=== PATIENT | female | born 1970 | race Caucasian/White ===

== ENCOUNTER 2018-03-09 12:53 | Emergency (ER) | payer OTHER, SELFPAY ==
[2018-03-09 13:00] VITALS: BP 120/77; PULSE 66; RESP 14; TEMP 36.5; O2SAT 100; BMI 22.9
--- NOTE | 2018-03-09 13:06 | ED.SKABFB ---
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 She states the dog's immunizations are up-to-date. Her repeat titers are up-to-date according to her. She was a bit to the right cheek area with redness and swelling and a puncture wound. She denies any injury to her eye. She is able to open and close her jaw without any complications. No other injuries or complaints.. She reports that her tetanus is up-to-date. Related Data Previous Rx's Medication Instructions Recorded clindamycin HCl 300 mg PO QID #40 cap MDD 1,200 mg 03/16/18 Allergies Allergy/AdvReac Type Severity Reaction Status Date / Time No Known Drug Allergies Allergy Verified 03/09/18 13:02 Review of Systems <ELVA Agosto - Last Filed: 03/09/18 22:16> Constitutional Denies chills, Denies fever(s), Denies lethargy and Denies weakness Eyes Denies change in vision, Denies eye discharge, Denies irritation and Denies loss of vision ENT Ears, Nose, Mouth, and Throat: Denies change in voice, Denies neck pain and Denies sore throat Cardiovascular Denies chest pain, Denies irregular heart rhythm, Denies lightheadedness, Denies palpitations, Denies dyspnea, Denies dyspnea on exertion and Denies orthopnea Respiratory Denies cough, Denies dyspnea, Denies dyspnea on exertion and Denies wheezing Gastrointestinal Gastrointestinal: Denies abdominal pain, Denies change in bowel habits, Denies diarrhea, Denies nausea and Denies vomiting Musculoskeletal Denies neck pain Integumentary/Breasts Comments: Dog bite to right cheek area Neurologic Denies loss of vision and Denies weakness Endocrine Denies palpitations Hematologic/Lymphatic Denies easy bruising Allergic/Immunologic Denies wheezing Exam <ELVA Agosto - Last Filed: 03/09/18 22:16> Initial Vital Signs Initial Vital Signs: Vital Signs Temperature 97.7 F 03/09/18 13:00 Pulse Rate 66 03/09/18 13:00 Respiratory Rate 14 03/09/18 13:00 Blood Pressure 120/77 03/09/18 13:00 Pulse Oximetry 100 03/09/18 13:00 Const General: cooperative and well developed Nutritional Appearance: well nourished Orientation: alert, awake, oriented x3 and not confused [facility] [place] Head: normocephalic and other (Erythema and swelling to the right cheek. 1 cm laceration/puncture wound to the right zygomatic area. Other small superficial abrasions to the right cheek area. No deformities.) Nose: external nose normal and nares normal Mouth: oral mucosae normal, oropharynx normal and moist mucous membranes Eyes Eyelids: eyelids normal Conjunctivae: conjunctivae normal Sclera: sclerae normal Pupils: PERRL EOM: EOM intact bilaterally Resp Effort & Inspection: normal respiratory effort, able to speak in complete sentences, no respiratory distress and no use of accessory muscles Auscultation: clear to auscultation bilaterally, no rales, no rhonchi and no wheezes Cardio Rate: regular rate Rhythm: regular rhythm Heart Sounds: no click, no gallops, no murmurs and no rubs Skin General: no rashes or lesions noted, No jaundice and No petechiae Neuro General: alert, oriented x3, gait normal and no focal motor deficits Speech: speech normal <DO Ellis Stoll Last Filed: 03/26/18 07:57> Initial Vital Signs Initial Vital Signs: Vital Signs Temperature 97.7 F 03/09/18 13:00 Pulse Rate 66 03/09/18 13:00 Respiratory Rate 14 03/09/18 13:00 Blood Pressure 120/77 03/09/18 13:00 Pulse Oximetry 100 03/09/18 13:00 Course <ELVA Agosto - Last Filed: 03/09/18 22:16> Orders Ordered: Discontinued Medications Ibuprofen (Advil) 400 mg PO NOW ONE Stop: 03/09/18 13:17 Last Admin: 03/09/18 13:43 Dose: 400 mg Vital Signs - 8 hr 03/09/18 13:00 Temperature 97.7 F Pulse Rate 66 Respiratory Rate 14 Blood Pressure 120/77 Pulse Oximetry 100 <DO Ellis Stoll Filed: 03/26/18 07:57> Orders Ordered: Discontinued Medications Ibuprofen (Advil) 400 mg PO NOW ONE Stop: 03/09/18 13:17 Last Admin: 03/09/18 13:43 Dose: 400 mg Vital Signs - 8 hr 03/09/18 13:00 Temperature 97.7 F Pulse Rate 66 Respiratory Rate 14 Blood Pressure 120/77 Pulse Oximetry 100 MDM - Skin/Abscess/Foreign Bdy <ELVA Agosto - Last Filed: 03/09/18 22:16> Imaging Data Facial bones : Radiologist's impression: Signed Patient: Macy Bravo MR#: [id number] : 1970 Acct:[id number] Age/Sex: 47 / F Date of Service: 03/09/18 Loc: ED Accession Number: [id number] Procedure: XR facial bones <3V Ordering Provider: Jonathan Loera PROCEDURE: XR FACIAL BONES <3V INDICATIONS: Dog bite to right cheek TECHNIQUE: 2 views of the facial bones were acquired. COMPARISON: None. FINDINGS: Sinuses: Visualized sinuses demonstrate no air-fluid levels or mucosal thickening. Bones: No fractures. No suspicious bony lesions. Orbital rims and zygomatic arches appear intact. Soft tissues: No suspicious soft tissue densities. IMPRESSION: 1. No facial bone fractures as seen. 2. No apparent soft tissue foreign bodies. [facility] Narrative Medical decision making narrative: 1 cm laceration/puncture wound to the right zygomatic area was irrigated with 250 mL of normal saline. Wound was closed with Steri-Strips to help with scarring did not want closed with sutures or Dermabond due to bite wound. Facial series x-rays was obtained was negative for any acute fractures or foreign bodies. [id number] Tylenol Motrin as needed for any discomfort. Tetanus is up-to-date. She is prescribed Augmentin for prophylaxis purposes. Follow up with primary care provider in the next few days. Return emergency room for any worsening symptoms. Discharge Plan Departure Patient Disposition: Home, Self-Care Clinical Impression: Dog bite, Facial laceration Discharge Date/Time: 03/09/18 14:29 Interventions: ED Discharge Assessment Last Done: 03/09/18 14:28 Instructions: DI for Dog Bite Activity Restrictions/Additional Instructions: Facial bone series x-ray was obtained was negative for any foreign bodies or fractures. Laceration from a dog bite to the right zygomatic area was closed with Steri-Strips. Try to keep Steri-Strips clean and dry for the next couple of days to promote healing and less scarring. You are prescribed an antibiotic called Augmentin for infection prophylaxis use as directed. Fluconazole as prescribed to prevent/treat for yeast infection also use as directed. Use [id number] Tylenol and/or Motrin as needed for any discomfort. Follow up with her primary care provider next week. For any worsening symptoms return to the emergency room. Prescriptions: No Action clindamycin HCl 300 mg capsule 300 mg PO QID MDD 1,200 mg Qty: 40 RF: 0 Referrals: [facility] [Provider Group] <Win Ho DO - Last Filed: 03/26/18 07:57> Cosign ED Attending Bernard Attestation: I was immediately available in the department for consultation. Documentation has been reviewed. I agree with assessment and plan.
--- NOTE | 2018-03-09 13:10 | DI.RAD.S_ITS ---
PROCEDURE: XR FACIAL BONES <3V INDICATIONS: Dog bite to right cheek TECHNIQUE: 2 views of the facial bones were acquired. COMPARISON: None. FINDINGS: Sinuses: Visualized sinuses demonstrate no air-fluid levels or mucosal thickening. Bones: No fractures. No suspicious bony lesions. Orbital rims and zygomatic arches appear intact. Soft tissues: No suspicious soft tissue densities. IMPRESSION: 1. No facial bone fractures as seen. 2. No apparent soft tissue foreign bodies. Dictated by: Keshav Javier M.D. on 03/09/2018 at 13:47 Approved by: Keshav Javier M.D. on 03/09/2018 at 13:48
[2018-03-09] MEDS: IBUPROFEN 400 MG TABLET PO (13:43)
--- NOTE | 2018-03-09 14:04 | ED_ITS ---
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 She states the dog's immunizations are up-to-date. Her repeat titers are up-to-date according to her. She was a bit to the right cheek area with redness and swelling and a puncture wound. She denies any injury to her eye. She is able to open and close her jaw without any complications. No other injuries or complaints.. She reports that her tetanus is up-to-date. Related Data Previous Rx's Medication Instructions Recorded clindamycin HCl 300 mg PO QID #40 cap MDD 1,200 mg 03/16/18 Allergies Allergy/AdvReac Type Severity Reaction Status Date / Time No Known Drug Allergies Allergy Verified 03/09/18 13:02 Review of Systems <ELVA Agosto - Last Filed: 03/09/18 22:16> Constitutional Denies chills, Denies fever(s), Denies lethargy and Denies weakness Eyes Denies change in vision, Denies eye discharge, Denies irritation and Denies loss of vision ENT Ears, Nose, Mouth, and Throat: Denies change in voice, Denies neck pain and Denies sore throat Cardiovascular Denies chest pain, Denies irregular heart rhythm, Denies lightheadedness, Denies palpitations, Denies dyspnea, Denies dyspnea on exertion and Denies orthopnea Respiratory Denies cough, Denies dyspnea, Denies dyspnea on exertion and Denies wheezing Gastrointestinal Gastrointestinal: Denies abdominal pain, Denies change in bowel habits, Denies diarrhea, Denies nausea and Denies vomiting Musculoskeletal Denies neck pain Integumentary/Breasts Comments: Dog bite to right cheek area Neurologic Denies loss of vision and Denies weakness Endocrine Denies palpitations Hematologic/Lymphatic Denies easy bruising Allergic/Immunologic Denies wheezing Exam <ELVA Agosto - Last Filed: 03/09/18 22:16> Initial Vital Signs Initial Vital Signs: Vital Signs Temperature 97.7 F 03/09/18 13:00 Pulse Rate 66 03/09/18 13:00 Respiratory Rate 14 03/09/18 13:00 Blood Pressure 120/77 03/09/18 13:00 Pulse Oximetry 100 03/09/18 13:00 Const General: cooperative and well developed Nutritional Appearance: well nourished Orientation: alert, awake, oriented x3 and not confused [facility] Head: normocephalic and other (Erythema and swelling to the right cheek. 1 cm laceration/puncture wound to the right zygomatic area. Other small superficial abrasions to the right cheek area. No deformities.) Nose: external nose normal and nares normal Mouth: oral mucosae normal, oropharynx normal and moist mucous membranes Eyes Eyelids: eyelids normal Conjunctivae: conjunctivae normal Sclera: sclerae normal Pupils: PERRL EOM: EOM intact bilaterally Resp Effort & Inspection: normal respiratory effort, able to speak in complete sentences, no respiratory distress and no use of accessory muscles Auscultation: clear to auscultation bilaterally, no rales, no rhonchi and no wheezes Cardio Rate: regular rate Rhythm: regular rhythm Heart Sounds: no click, no gallops, no murmurs and no rubs Skin General: no rashes or lesions noted, No jaundice and No petechiae Neuro General: alert, oriented x3, gait normal and no focal motor deficits Speech: speech normal <DO Ellis Stoll Last Filed: 03/26/18 07:57> Initial Vital Signs Initial Vital Signs: Vital Signs Temperature 97.7 F 03/09/18 13:00 Pulse Rate 66 03/09/18 13:00 Respiratory Rate 14 03/09/18 13:00 Blood Pressure 120/77 03/09/18 13:00 Pulse Oximetry 100 03/09/18 13:00 Course <ELVA Agosto - Last Filed: 03/09/18 22:16> Orders Ordered: Discontinued Medications Ibuprofen (Advil) 400 mg PO NOW ONE Stop: 03/09/18 13:17 Last Admin: 03/09/18 13:43 Dose: 400 mg Vital Signs - 8 hr 03/09/18 13:00 Temperature 97.7 F Pulse Rate 66 Respiratory Rate 14 Blood Pressure 120/77 Pulse Oximetry 100 <DO Ellis Stoll Filed: 03/26/18 07:57> Orders Ordered: Discontinued Medications Ibuprofen (Advil) 400 mg PO NOW ONE Stop: 03/09/18 13:17 Last Admin: 03/09/18 13:43 Dose: 400 mg Vital Signs - 8 hr 03/09/18 13:00 Temperature 97.7 F Pulse Rate 66 Respiratory Rate 14 Blood Pressure 120/77 Pulse Oximetry 100 MDM - Skin/Abscess/Foreign Bdy <ELVA Agosto - Last Filed: 03/09/18 22:16> Imaging Data Facial bones : Radiologist's impression: Signed Patient: Macy Bravo MR#: [id number] : 1970 Acct:[id number] Age/Sex: 47 / F Date of Service: 03/09/18 Loc: ED Accession Number: [id number] Procedure: XR facial bones <3V Ordering Provider: Jonathan Loera PROCEDURE: XR FACIAL BONES <3V INDICATIONS: Dog bite to right cheek TECHNIQUE: 2 views of the facial bones were acquired. COMPARISON: None. FINDINGS: Sinuses: Visualized sinuses demonstrate no air-fluid levels or mucosal thickening. Bones: No fractures. No suspicious bony lesions. Orbital rims and zygomatic arches appear intact. Soft tissues: No suspicious soft tissue densities. IMPRESSION: 1. No facial bone fractures as seen. 2. No apparent soft tissue foreign bodies. [facility] Narrative Medical decision making narrative: 1 cm laceration/puncture wound to the right zygomatic area was irrigated with 250 mL of normal saline. Wound was closed with Steri-Strips to help with scarring did not want closed with sutures or Dermabond due to bite wound. Facial series x-rays was obtained was negative for any acute fractures or foreign bodies. [id number] Tylenol Motrin as needed for any discomfort. Tetanus is up-to-date. She is prescribed Augmentin for prophylaxis purposes. Follow up with primary care provider in the next few days. Return emergency room for any worsening symptoms. Discharge Plan Departure Patient Disposition: Home, Self-Care Clinical Impression: Dog bite, Facial laceration Discharge Date/Time: 03/09/18 14:29 Interventions: ED Discharge Assessment Last Done: 03/09/18 14:28 Instructions: DI for Dog Bite Activity Restrictions/Additional Instructions: Facial bone series x-ray was obtained was negative for any foreign bodies or fractures. Laceration from a dog bite to the right zygomatic area was closed with Steri-Strips. Try to keep Steri-Strips clean and dry for the next couple of days to promote healing and less scarring. You are prescribed an antibiotic called Augmentin for infection prophylaxis use as directed. Fluconazole as prescribed to prevent/treat for yeast infection also use as directed. Use over- the-counter Tylenol and/or Motrin as needed for any discomfort. Follow up with her primary care provider next week. For any worsening symptoms return to the emergency room. Prescriptions: No Action clindamycin HCl 300 mg capsule 300 mg PO QID MDD 1,200 mg Qty: 40 RF: 0 Referrals: [facility] [Provider Group] <Win Ho DO - Last Filed: 03/26/18 07:57> Cosign ED Attending Bernard Attestation: I was immediately available in the department for consultation. Documentation has been reviewed. I agree with assessment and plan.
[2018-03-09 14:16] VITALS: BP 110/73; PULSE 57; RESP 18; O2SAT 100
== END 2018-03-09 14:29 | disposition home or self-care (01) ==
PROVIDERS: Emergency Provider Nurse Practitioner Family
DX: S01.81XA Laceration without foreign body of other part of head, initial encounter (principal); W54.0XXA Bitten by dog, initial encounter; Y99.0 Civilian activity done for income or pay
CPT/HCPCS: 70140; 99282; 99283

== ENCOUNTER 2018-03-11 11:26 | Inpatient (IN) | payer OTHER, SELFPAY ==
[2018-03-11] VITALS (7 sets, daily range): BP systolic 104–113; BP diastolic 60–77; PULSE 63–73; RESP 16–20; TEMP 36.1–36.7; O2SAT 98–100; BMI 24.1
--- NOTE | 2018-03-11 13:07 | ED.SKABFB ---
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 She was seen by me 2 days ago and was treated with Augmentin. She reports that she has been taking the Augmentin over the past couple of days. She reports increased swelling and redness and discomfort to the right cheek area especially today. Starting when she woke up this morning. She denies any fevers or chills. She states that she has had some clear drainage from the wound area. She denies any other concerns or complaints Related Data Previous Rx's Medication Instructions Recorded amoxicillin-pot clavulanate 1 tab PO BID #10 tab 03/09/18 [Augmentin] fluconazole 150 mg PO .other #2 tab 03/09/18 Allergies Allergy/AdvReac Type Severity Reaction Status Date / Time No Known Drug Allergies Allergy Verified 03/09/18 13:02 Review of Systems <ELVA Agosto - Last Filed: 03/11/18 22:57> Constitutional Denies chills, Denies fever(s), Denies lethargy and Denies weakness Eyes Denies change in vision, Denies eye discharge, Denies irritation and Denies loss of vision ENT Comments: Dog bite to right cheek worsening redness Cardiovascular Denies chest pain, Denies irregular heart rhythm, Denies lightheadedness, Denies palpitations, Denies dyspnea, Denies dyspnea on exertion and Denies orthopnea Respiratory Denies cough, Denies dyspnea, Denies dyspnea on exertion and Denies wheezing Gastrointestinal Gastrointestinal: Denies abdominal pain, Denies change in bowel habits, Denies diarrhea, Denies nausea and Denies vomiting Genitourinary Denies hematuria, Denies flank pain, Denies urinary incontinence and Denies urinary urgency Musculoskeletal Denies back pain, Denies muscle weakness, Denies numbness and Denies tingling Integumentary/Breasts Denies pruritus, Denies erythema, Denies rash and Denies wounds Neurologic Denies confusion, Denies loss of vision, Denies numbness, Denies tingling and Denies weakness Psychiatric Denies anxiety, Denies confusion, Denies depression, Denies homicidal ideation and Denies suicidal ideation Endocrine Denies palpitations Hematologic/Lymphatic Denies easy bruising Allergic/Immunologic Denies wheezing Exam <ELVA Agosto - Last Filed: 03/11/18 22:57> Initial Vital Signs Initial Vital Signs: Vital Signs Temperature 97.6 F 03/11/18 11:30 Pulse Rate 73 03/11/18 11:30 Respiratory Rate 16 03/11/18 11:30 Blood Pressure 112/77 03/11/18 11:30 Pulse Oximetry 98 03/11/18 11:30 Const General: cooperative and well developed Nutritional Appearance: well nourished Orientation: alert, awake, oriented x3 and not confused HENMT Face and sinus: other (Laceration to right zygomatic area appear well approximated. Generalized erythema and swelling into the right cheek and into the infra orbital area. No drainage seen on exam. Increased heat to the area on palpation.) Mouth: oral mucosae normal and moist mucous membranes Eyes Conjunctivae: conjunctivae normal Sclera: sclerae normal Pupils: PERRL EOM: EOM intact bilaterally Resp Effort & Inspection: normal respiratory effort, able to speak in complete sentences, no respiratory distress and no use of accessory muscles Auscultation: clear to auscultation bilaterally, no rales, no rhonchi and no wheezes Cardio Rate: regular rate Rhythm: regular rhythm Heart Sounds: no click, no gallops, no murmurs and no rubs Pulses: normal peripheral pulses Skin General: no rashes or lesions noted, No jaundice and No petechiae Neuro General: alert, oriented x3, gait normal and no focal motor deficits Speech: speech normal <Sebas Lainez DO - Last Filed: 03/12/18 07:20> Initial Vital Signs Initial Vital Signs: Vital Signs Temperature 97.6 F 03/11/18 11:30 Pulse Rate 73 03/11/18 11:30 Respiratory Rate 16 03/11/18 11:30 Blood Pressure 112/77 03/11/18 11:30 Pulse Oximetry 98 03/11/18 11:30 Course <ELVA Agosto - Last Filed: 03/11/18 22:57> Orders Ordered: Acetaminophen (Tylenol) 650 mg PO Q6HR PRN PRN Reason: As Needed for Fever/Mild Pain Hydrocodone Bitart/Acetaminophen (Darden 5/325) 1 tab PO Q4HR PRN PRN Reason: Pain, Moderate (4-6) Al Hydrox/Mg Hydrox/Simethicone (Maalox Plus) 30 ml PO Q6HR PRN PRN Reason: Dyspepsia Sodium Chloride (Normal Saline 0.9%) 1,000 mls @ 125 mls/hr IV CONT [facility] Last Admin: 03/12/18 03:44 Dose: 125 mls/hr Infusion: 03/12/18 02:36 Dose: 125 mls/hr Admin: 03/11/18 18:36 Dose: 125 mls/hr Ceftriaxone Sodium/Dextrose (Rocephin) 2 gm in 50 mls @ 100 mls/hr IV Q24H [facility] Clindamycin Phosphate (Cleocin) 600 mg in 50 mls @ 50 mls/hr IV Q6H [facility] Last Admin: 03/12/18 03:45 Dose: 50 mls/hr Infusion: 03/11/18 23:00 Dose: 0 mls/hr Admin: 03/11/18 21:29 Dose: 50 mls/hr Magnesium Hydroxide (Milk Of Magnesia) 30 ml PO DAILY PRN PRN Reason: Constipation Ondansetron HCl (Zofran) 4 mg IV Q8HR PRN PRN Reason: Nausea And Vomiting Oxycodone HCl (Percolone) 5 mg PO Q6HR PRN PRN Reason: Pain, Moderate (4-6) Discontinued Medications Ceftriaxone Sodium/Dextrose (Rocephin) 2 gm in 50 mls @ 100 mls/hr IV NOW ONE Stop: 03/11/18 15:42 Last Infusion: 03/11/18 16:02 Dose: 0 mls/hr Admin: 03/11/18 15:33 Dose: 100 mls/hr Clindamycin Phosphate (Cleocin) 600 mg in 50 mls @ 50 mls/hr IV NOW ONE Stop: 03/11/18 16:41 Last Infusion: 03/11/18 16:40 Dose: 0 mls/hr Admin: 03/11/18 16:11 Dose: 50 mls/hr Ondansetron HCl (Zofran) 4 mg IV Q4HR PRN PRN Reason: Nausea And Vomiting Vital Signs - 8 hr 07/27/18 23:57 03/12/18 00:05 03/12/18 05:56 Temperature 97.6 F 98.6 F Pulse Rate 63 54 L Respiratory Rate 16 16 Blood Pressure 106/60 110/69 Pulse Oximetry 98 98 99 <Sebas Fishergale, DO - Last Filed: 03/12/18 07:20> Orders Ordered: Acetaminophen (Tylenol) 650 mg PO Q6HR PRN PRN Reason: As Needed for Fever/Mild Pain Hydrocodone Bitart/Acetaminophen (Darden 5/325) 1 tab PO Q4HR PRN PRN Reason: Pain, Moderate (4-6) Al Hydrox/Mg Hydrox/Simethicone (Maalox Plus) 30 ml PO Q6HR PRN PRN Reason: Dyspepsia Sodium Chloride (Normal Saline 0.9%) 1,000 mls @ 125 mls/hr IV CONT [facility] Last Admin: 03/12/18 03:44 Dose: 125 mls/hr Infusion: 03/12/18 02:36 Dose: 125 mls/hr Admin: 03/11/18 18:36 Dose: 125 mls/hr Ceftriaxone Sodium/Dextrose (Rocephin) 2 gm in 50 mls @ 100 mls/hr IV Q24H [facility] Clindamycin Phosphate (Cleocin) 600 mg in 50 mls @ 50 mls/hr IV Q6H [facility] Last Admin: 03/12/18 03:45 Dose: 50 mls/hr Infusion: 03/11/18 23:00 Dose: 0 mls/hr Admin: 03/11/18 21:29 Dose: 50 mls/hr Magnesium Hydroxide (Milk Of Magnesia) 30 ml PO DAILY PRN PRN Reason: Constipation Ondansetron HCl (Zofran) 4 mg IV Q8HR PRN PRN Reason: Nausea And Vomiting Oxycodone HCl (Percolone) 5 mg PO Q6HR PRN PRN Reason: Pain, Moderate (4-6) Discontinued Medications Ceftriaxone Sodium/Dextrose (Rocephin) 2 gm in 50 mls @ 100 mls/hr IV NOW ONE Stop: 03/11/18 15:42 Last Infusion: 03/11/18 16:02 Dose: 0 mls/hr Admin: 03/11/18 15:33 Dose: 100 mls/hr Clindamycin Phosphate (Cleocin) 600 mg in 50 mls @ 50 mls/hr IV NOW ONE Stop: 03/11/18 16:41 Last Infusion: 03/11/18 16:40 Dose: 0 mls/hr Admin: 03/11/18 16:11 Dose: 50 mls/hr Ondansetron HCl (Zofran) 4 mg IV Q4HR PRN PRN Reason: Nausea And Vomiting Vital Signs - 8 hr 03/11/18 23:57 03/12/18 00:05 03/12/18 05:56 Temperature 97.6 F 98.6 F Pulse Rate 63 54 L Respiratory Rate 16 16 Blood Pressure 106/60 110/69 Pulse Oximetry 98 98 99 MDM - Skin/Abscess/Foreign Bdy <ELVA Agosto - Last Filed: 03/11/18 22:57> Lab Data Result diagrams: 03/11/18 14:10 03/11/18 14:10 Lab Results 03/11/18 03/11/18 03/11/18 Range/Units 14:10 14:10 14:10 WBC 5.9 (4.5-11.0) X10^3/uL RBC 4.59 (4.0-5.2) X10^6/uL Hgb 14.1 (12.0-16.0) g/dL Hct 41.3 (36-46) % MCV 90.0 (80-100) fL MCH 30.7 (26-34) PG MCHC 34.2 (30-36) % RDW 13.0 (11.6-14.8) % Plt Count 203 (150-400) X10^3/uL Neut % (Auto) 70.4 (50-75) % Lymph % (Auto) 19.3 L (25-40) % [place] % (Auto) 6.5 (3-14) % Eos % (Auto) 2.8 (2-4) % Baso % (Auto) 1.0 (0-2) % Neut # (Auto) 4100 (0301-3860) /uL Sodium 140 (137-145) mmol/L Potassium 4.2 (3.4-5.1) mmol/L Chloride 105 (98-107) mmol/L Carbon Dioxide 26 (22-32) mmol/L BUN 14 (7-17) mg/dL Creatinine 0.70 (0.52-1.04) mg/dL Estimated GFR > 60.0 (>60) mL/min BUN/Creatinine Ratio 20.0 (6-22) Glucose 91 (70-100) mg/dL Lactate (0.7-2.1) mmol/L Calcium 9.3 (8.4-10.2) mg/dL Total Bilirubin 0.6 (0.2-1.3) mg/dL AST 33 (14-36) IU/L ALT 23 (9-52) IU/L Alkaline Phosphatase 38 (38-126) U/L Total Protein 6.8 (6.3-8.2) g/dL Albumin 4.2 (3.5-5.0) g/dL Globulin 2.6 (1.7-4.1) g/dL Albumin/Globulin Ratio 1.6 (1.0-2.8) Procalcitonin < 0.05 (<0.5) ng/mL 03/11/18 Range/Units 14:10 WBC (4.5-11.0) X10^3/uL RBC (4.0-5.2) X10^6/uL Hgb (12.0-16.0) g/dL Hct (36-46) % MCV (80-100) fL MCH (26-34) PG MCHC (30-36) % RDW (11.6-14.8) % Plt Count (150-400) X10^3/uL Neut % (Auto) (50-75) % Lymph % (Auto) (25-40) % [place] % (Auto) (3-14) % Eos % (Auto) (2-4) % Baso % (Auto) (0-2) % Neut # (Auto) (4029-3311) /uL Sodium (137-145) mmol/L Potassium (3.4-5.1) mmol/L Chloride (98-107) mmol/L Carbon Dioxide (22-32) mmol/L BUN (7-17) mg/dL Creatinine (0.52-1.04) mg/dL Estimated GFR (>60) mL/min BUN/Creatinine Ratio (6-22) Glucose (70-100) mg/dL Lactate 0.7 (0.7-2.1) mmol/L Calcium (8.4-10.2) mg/dL Total Bilirubin (0.2-1.3) mg/dL AST (14-36) IU/L ALT (9-52) IU/L Alkaline Phosphatase (38-126) U/L Total Protein (6.3-8.2) g/dL Albumin (3.5-5.0) g/dL Globulin (1.7-4.1) g/dL Albumin/Globulin Ratio (1.0-2.8) Procalcitonin (<0.5) ng/mL Imaging Data CT face: Radiologist's impression: PROCEDURE: CT FACIAL BONES W CON INDICATIONS: Dog bite 2 days ago with worsening swelling right cheek TECHNIQUE: After the administration of intravenous contrast, 2.5 mm axial sections acquired from the mid-neck to the frontal sinuses, with coronal and sagittal reformats. For radiation dose reduction, the following was used: automated exposure control, adjustment of mA and/or kV according to patient size. COMPARISON: None. FINDINGS: Image quality: Excellent. Soft tissues: Inflammatory stranding and swelling noted in the subcutaneous tissues of the right malar eminence. No enlarged lymph nodes. Vascular: Visualized vascular structures appear patent throughout. Bony vascular foramina and canals appear normal. Bones: Facial bones appear intact, without fractures, erosions, or destruction. Cervical spine degenerative disc disease and facet arthropathy noted. Visualized portions of the skull base and auditory canals also appear normal. Sinuses: Paranasal sinuses are aerated without fluid levels, mucosal thickening, or mucoceles. Mastoid air cells are aerated. IMPRESSION: 1. Soft tissue swelling involving the right cheek compatible with cellulitis. 2. No abscess. 3. No fracture. Dictated by: Adrianna Burkett MD, PhD on 03/11/2018 at 15:01 Approved by: Adrianna Burkett MD, PhD on 03/11/2018 at 15:06 [facility] Narrative Medical decision making narrative: CBC and Chem panel were obtained were unremarkable. Procalcitonin was negative lactate was negative. CT of the face was negative for abscess or hematoma however so sign consistent with cellulitis. She was started on IV Rocephin in the emergency room. Called Dr. Roberts ENT who recommends also putting patient on clindamycin which was also started in the emergency room. He recommended admission with observation and IV antibiotics. Discussed case with Dr. Calero hospitalist who accepted patient. Patient admitted for inpatient services <Sebas Lainez, DO - Last Filed: 03/12/18 07:20> Lab Data Lab Results 03/11/18 03/11/18 03/11/18 Range/Units 14:10 14:10 14:10 WBC 5.9 (4.5-11.0) X10^3/uL RBC 4.59 (4.0-5.2) X10^6/uL Hgb 14.1 (12.0-16.0) g/dL Hct 41.3 (36-46) % MCV 90.0 (80-100) fL MCH 30.7 (26-34) PG MCHC 34.2 (30-36) % RDW 13.0 (11.6-14.8) % Plt Count 203 (150-400) X10^3/uL Neut % (Auto) 70.4 (50-75) % Lymph % (Auto) 19.3 L (25-40) % [place] % (Auto) 6.5 (3-14) % Eos % (Auto) 2.8 (2-4) % Baso % (Auto) 1.0 (0-2) % Neut # (Auto) 4100 (7872-1823) /uL Sodium 140 (137-145) mmol/L Potassium 4.2 (3.4-5.1) mmol/L Chloride 105 (98-107) mmol/L Carbon Dioxide 26 (22-32) mmol/L BUN 14 (7-17) mg/dL Creatinine 0.70 (0.52-1.04) mg/dL Estimated GFR > 60.0 (>60) mL/min BUN/Creatinine Ratio 20.0 (6-22) Glucose 91 (70-100) mg/dL Lactate (0.7-2.1) mmol/L Calcium 9.3 (8.4-10.2) mg/dL Total Bilirubin 0.6 (0.2-1.3) mg/dL AST 33 (14-36) IU/L ALT 23 (9-52) IU/L Alkaline Phosphatase 38 (38-126) U/L Total Protein 6.8 (6.3-8.2) g/dL Albumin 4.2 (3.5-5.0) g/dL Globulin 2.6 (1.7-4.1) g/dL Albumin/Globulin Ratio 1.6 (1.0-2.8) Procalcitonin < 0.05 (<0.5) ng/mL 03/11/18 Range/Units 14:10 WBC (4.5-11.0) X10^3/uL RBC (4.0-5.2) X10^6/uL Hgb (12.0-16.0) g/dL Hct (36-46) % MCV (80-100) fL MCH (26-34) PG MCHC (30-36) % RDW (11.6-14.8) % Plt Count (150-400) X10^3/uL Neut % (Auto) (50-75) % Lymph % (Auto) (25-40) % [place] % (Auto) (3-14) % Eos % (Auto) (2-4) % Baso % (Auto) (0-2) % Neut # (Auto) (2857-3236) /uL Sodium (137-145) mmol/L Potassium (3.4-5.1) mmol/L Chloride (98-107) mmol/L Carbon Dioxide (22-32) mmol/L BUN (7-17) mg/dL Creatinine (0.52-1.04) mg/dL Estimated GFR (>60) mL/min BUN/Creatinine Ratio (6-22) Glucose (70-100) mg/dL Lactate 0.7 (0.7-2.1) mmol/L Calcium (8.4-10.2) mg/dL Total Bilirubin (0.2-1.3) mg/dL AST (14-36) IU/L ALT (9-52) IU/L Alkaline Phosphatase (38-126) U/L Total Protein (6.3-8.2) g/dL Albumin (3.5-5.0) g/dL Globulin (1.7-4.1) g/dL Albumin/Globulin Ratio (1.0-2.8) Procalcitonin (<0.5) ng/mL Discharge Plan Departure Patient Disposition: Admitted As Inpatient Clinical Impression: Dog bite Discharge Date/Time: 03/11/18 18:05 Interventions: ED Discharge Assessment Last Done: 03/11/18 18:05 Admit Date/Time: 03/11/18 17:40 Admit Provider: Matheus Calero <Sebas Lainez DO - Last Filed: 03/12/18 07:20> Cosign ED Attending Cosignature Attestation: I was available for consultation during this patient's emergency department encounter
--- NOTE | 2018-03-11 13:07 | PC.NURSE ---
Steri strips in place from provider yesterday. Area is red and swallen today
[2018-03-11 14:25] LABS: Add Manual Diff / Slide Review NO; Eosinophils Percent Auto 2.8 % (2-4); Hematocrit 41.3 % (36-46); Hemoglobin 14.1 g/dL (12.0-16.0); Lymphocytes Percent Auto 19.3 % (25-40); Mean Corpuscular HGB Conc 34.2 % (30-36); Mean Corpuscular Hemoglobin 30.7 PG (26-34); Monocytes Percent Auto 6.5 % (3-14); Neutrophils Absolute Auto 4100 /uL (3000-5900); Neutrophils Percent Auto 70.4 % (50-75); Platelet Count 203 X10^3/uL (150-400); Red Blood Cell Count 4.59 X10^6/uL (4.0-5.2); White Blood Cell Count 5.9 X10^3/uL (4.5-11.0)
[2018-03-11 14:37] LABS: Alanine Aminotransferase 23 IU/L (9-52); Albumin 4.2 g/dL (3.5-5.0); Albumin Globulin Ratio 1.6 (1.0-2.8); Alkaline Phosphatase 38 U/L (38-126); Aspartate Aminotransferase 33 IU/L (14-36); Bilirubin Total 0.6 mg/dL (0.2-1.3); Blood Urea Nitrogen 14 mg/dL (7-17); Calcium 9.3 mg/dL (8.4-10.2); Carbon Dioxide 26 mmol/L (22-32); Chloride 105 mmol/L (98-107); Estimated Glomerular Filt Rate > 60.0 mL/min (>60); Globulin 2.6 g/dL (1.7-4.1); Glucose 91 mg/dL (70-100); HEMOLYSIS 24 (0-50); Potassium 4.2 mmol/L (3.4-5.1); Sodium 140 mmol/L (137-145); Total Protein 6.8 g/dL (6.3-8.2)
[2018-03-11 14:38] LABS: Lactate (Lactic Acid) 0.7 mmol/L (0.7-2.1)
--- NOTE | 2018-03-11 14:41 | DI.CT.S_ITS ---
PROCEDURE: CT FACIAL BONES W CON INDICATIONS: Dog bite 2 days ago with worsening swelling right cheek TECHNIQUE: After the administration of intravenous contrast, 2.5 mm axial sections acquired from the mid-neck to the frontal sinuses, with coronal and sagittal reformats. For radiation dose reduction, the following was used: automated exposure control, adjustment of mA and/or kV according to patient size. COMPARISON: None. FINDINGS: Image quality: Excellent. Soft tissues: Inflammatory stranding and swelling noted in the subcutaneous tissues of the right malar eminence. No enlarged lymph nodes. Vascular: Visualized vascular structures appear patent throughout. Bony vascular foramina and canals appear normal. Bones: Facial bones appear intact, without fractures, erosions, or destruction. Cervical spine degenerative disc disease and facet arthropathy noted. Visualized portions of the skull base and auditory canals also appear normal. Sinuses: Paranasal sinuses are aerated without fluid levels, mucosal thickening, or mucoceles. Mastoid air cells are aerated. IMPRESSION: 1. Soft tissue swelling involving the right cheek compatible with cellulitis. 2. No abscess. 3. No fracture. Dictated by: Adrianna Burkett MD, PhD on 03/11/2018 at 15:01 Approved by: Adrianna Burkett MD, PhD on 03/11/2018 at 15:06
[2018-03-11 14:56] LABS: Procalcitonin < 0.05 ng/mL (<0.5)
[2018-03-11] MEDS: CEFTRIAXONE 2 GM/50 ML FROZ.PIGGY IV (15:33)
[2018-03-11] MEDS: CLINDAMYCIN 600 MG/50 ML PIGGYBACK 50 MG IV ×2 (16:11→21:29)
--- NOTE | 2018-03-11 16:40 | ED_ITS ---
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 She was seen by me 2 days ago and was treated with Augmentin. She reports that she has been taking the Augmentin over the past couple of days. She reports increased swelling and redness and discomfort to the right cheek area especially today. Starting when she woke up this morning. She denies any fevers or chills. She states that she has had some clear drainage from the wound area. She denies any other concerns or complaints Related Data Previous Rx's Medication Instructions Recorded amoxicillin-pot clavulanate 1 tab PO BID #10 tab 03/09/18 [Augmentin] fluconazole 150 mg PO .other #2 tab 03/09/18 Allergies Allergy/AdvReac Type Severity Reaction Status Date / Time No Known Drug Allergies Allergy Verified 03/09/18 13:02 Review of Systems <ELVA Agosto - Last Filed: 03/11/18 22:57> Constitutional Denies chills, Denies fever(s), Denies lethargy and Denies weakness Eyes Denies change in vision, Denies eye discharge, Denies irritation and Denies loss of vision ENT Comments: Dog bite to right cheek worsening redness Cardiovascular Denies chest pain, Denies irregular heart rhythm, Denies lightheadedness, Denies palpitations, Denies dyspnea, Denies dyspnea on exertion and Denies orthopnea Respiratory Denies cough, Denies dyspnea, Denies dyspnea on exertion and Denies wheezing Gastrointestinal Gastrointestinal: Denies abdominal pain, Denies change in bowel habits, Denies diarrhea, Denies nausea and Denies vomiting Genitourinary Denies hematuria, Denies flank pain, Denies urinary incontinence and Denies urinary urgency Musculoskeletal Denies back pain, Denies muscle weakness, Denies numbness and Denies tingling Integumentary/Breasts Denies pruritus, Denies erythema, Denies rash and Denies wounds Neurologic Denies confusion, Denies loss of vision, Denies numbness, Denies tingling and Denies weakness Psychiatric Denies anxiety, Denies confusion, Denies depression, Denies homicidal ideation and Denies suicidal ideation Endocrine Denies palpitations Hematologic/Lymphatic Denies easy bruising Allergic/Immunologic Denies wheezing Exam <ELVA Agosto - Last Filed: 03/11/18 22:57> Initial Vital Signs Initial Vital Signs: Vital Signs Temperature 97.6 F 03/11/18 11:30 Pulse Rate 73 03/11/18 11:30 Respiratory Rate 16 03/11/18 11:30 Blood Pressure 112/77 03/11/18 11:30 Pulse Oximetry 98 03/11/18 11:30 Const General: cooperative and well developed Nutritional Appearance: well nourished Orientation: alert, awake, oriented x3 and not confused HENMT Face and sinus: other (Laceration to right zygomatic area appear well approximated. Generalized erythema and swelling into the right cheek and into the infra orbital area. No drainage seen on exam. Increased heat to the area on palpation.) Mouth: oral mucosae normal and moist mucous membranes Eyes Conjunctivae: conjunctivae normal Sclera: sclerae normal Pupils: PERRL EOM: EOM intact bilaterally Resp Effort & Inspection: normal respiratory effort, able to speak in complete sentences, no respiratory distress and no use of accessory muscles Auscultation: clear to auscultation bilaterally, no rales, no rhonchi and no wheezes Cardio Rate: regular rate Rhythm: regular rhythm Heart Sounds: no click, no gallops, no murmurs and no rubs Pulses: normal peripheral pulses Skin General: no rashes or lesions noted, No jaundice and No petechiae Neuro General: alert, oriented x3, gait normal and no focal motor deficits Speech: speech normal <Sebas Lainez DO - Last Filed: 03/12/18 07:20> Initial Vital Signs Initial Vital Signs: Vital Signs Temperature 97.6 F 03/11/18 11:30 Pulse Rate 73 03/11/18 11:30 Respiratory Rate 16 03/11/18 11:30 Blood Pressure 112/77 03/11/18 11:30 Pulse Oximetry 98 03/11/18 11:30 Course <ELVA Agosto - Last Filed: 03/11/18 22:57> Orders Ordered: Acetaminophen (Tylenol) 650 mg PO Q6HR PRN PRN Reason: As Needed for Fever/Mild Pain Hydrocodone Bitart/Acetaminophen ([place] 5/325) 1 tab PO Q4HR PRN PRN Reason: Pain, Moderate (4-6) Al Hydrox/Mg Hydrox/Simethicone (Maalox Plus) 30 ml PO Q6HR PRN PRN Reason: Dyspepsia Sodium Chloride (Normal Saline 0.9%) 1,000 mls @ 125 mls/hr IV CONT [facility] Last Admin: 03/12/18 03:44 Dose: 125 mls/hr Infusion: 03/12/18 02:36 Dose: 125 mls/hr Admin: 03/11/18 18:36 Dose: 125 mls/hr Ceftriaxone Sodium/Dextrose (Rocephin) 2 gm in 50 mls @ 100 mls/hr IV Q24H [facility] Clindamycin Phosphate (Cleocin) 600 mg in 50 mls @ 50 mls/hr IV Q6H [facility] Last Admin: 03/12/18 03:45 Dose: 50 mls/hr Infusion: 03/11/18 23:00 Dose: 0 mls/hr Admin: 03/11/18 21:29 Dose: 50 mls/hr Magnesium Hydroxide (Milk Of Magnesia) 30 ml PO DAILY PRN PRN Reason: Constipation Ondansetron HCl (Zofran) 4 mg IV Q8HR PRN PRN Reason: Nausea And Vomiting Oxycodone HCl (Percolone) 5 mg PO Q6HR PRN PRN Reason: Pain, Moderate (4-6) Discontinued Medications Ceftriaxone Sodium/Dextrose (Rocephin) 2 gm in 50 mls @ 100 mls/hr IV NOW ONE Stop: 03/11/18 15:42 Last Infusion: 03/11/18 16:02 Dose: 0 mls/hr Admin: 03/11/18 15:33 Dose: 100 mls/hr Clindamycin Phosphate (Cleocin) 600 mg in 50 mls @ 50 mls/hr IV NOW ONE Stop: 03/11/18 16:41 Last Infusion: 03/11/18 16:40 Dose: 0 mls/hr Admin: 03/11/18 16:11 Dose: 50 mls/hr Ondansetron HCl (Zofran) 4 mg IV Q4HR PRN PRN Reason: Nausea And Vomiting Vital Signs - 8 hr 07/27/18 23:57 03/12/18 00:05 03/12/18 05:56 Temperature 97.6 F 98.6 F Pulse Rate 63 54 L Respiratory Rate 16 16 Blood Pressure 106/60 110/69 Pulse Oximetry 98 98 99 <Sebas Fishergale, DO - Last Filed: 03/12/18 07:20> Orders Ordered: Acetaminophen (Tylenol) 650 mg PO Q6HR PRN PRN Reason: As Needed for Fever/Mild Pain Hydrocodone Bitart/Acetaminophen ([place] 5/325) 1 tab PO Q4HR PRN PRN Reason: Pain, Moderate (4-6) Al Hydrox/Mg Hydrox/Simethicone (Maalox Plus) 30 ml PO Q6HR PRN PRN Reason: Dyspepsia Sodium Chloride (Normal Saline 0.9%) 1,000 mls @ 125 mls/hr IV CONT [facility] Last Admin: 03/12/18 03:44 Dose: 125 mls/hr Infusion: 03/12/18 02:36 Dose: 125 mls/hr Admin: 03/11/18 18:36 Dose: 125 mls/hr Ceftriaxone Sodium/Dextrose (Rocephin) 2 gm in 50 mls @ 100 mls/hr IV Q24H [facility] Clindamycin Phosphate (Cleocin) 600 mg in 50 mls @ 50 mls/hr IV Q6H [facility] Last Admin: 03/12/18 03:45 Dose: 50 mls/hr Infusion: 03/11/18 23:00 Dose: 0 mls/hr Admin: 03/11/18 21:29 Dose: 50 mls/hr Magnesium Hydroxide (Milk Of Magnesia) 30 ml PO DAILY PRN PRN Reason: Constipation Ondansetron HCl (Zofran) 4 mg IV Q8HR PRN PRN Reason: Nausea And Vomiting Oxycodone HCl (Percolone) 5 mg PO Q6HR PRN PRN Reason: Pain, Moderate (4-6) Discontinued Medications Ceftriaxone Sodium/Dextrose (Rocephin) 2 gm in 50 mls @ 100 mls/hr IV NOW ONE Stop: 03/11/18 15:42 Last Infusion: 03/11/18 16:02 Dose: 0 mls/hr Admin: 03/11/18 15:33 Dose: 100 mls/hr Clindamycin Phosphate (Cleocin) 600 mg in 50 mls @ 50 mls/hr IV NOW ONE Stop: 03/11/18 16:41 Last Infusion: 03/11/18 16:40 Dose: 0 mls/hr Admin: 03/11/18 16:11 Dose: 50 mls/hr Ondansetron HCl (Zofran) 4 mg IV Q4HR PRN PRN Reason: Nausea And Vomiting Vital Signs - 8 hr 03/11/18 23:57 03/12/18 00:05 03/12/18 05:56 Temperature 97.6 F 98.6 F Pulse Rate 63 54 L Respiratory Rate 16 16 Blood Pressure 106/60 110/69 Pulse Oximetry 98 98 99 MDM - Skin/Abscess/Foreign Bdy <ELVA Agosto - Last Filed: 03/11/18 22:57> Lab Data Result diagrams: 03/11/18 14:10 03/11/18 14:10 Lab Results 03/11/18 03/11/18 03/11/18 Range/Units 14:10 14:10 14:10 WBC 5.9 (4.5-11.0) X10^3/uL RBC 4.59 (4.0-5.2) X10^6/uL Hgb 14.1 (12.0-16.0) g/dL Hct 41.3 (36-46) % MCV 90.0 (80-100) fL MCH 30.7 (26-34) PG MCHC 34.2 (30-36) % RDW 13.0 (11.6-14.8) % Plt Count 203 (150-400) X10^3/uL Neut % (Auto) 70.4 (50-75) % Lymph % (Auto) 19.3 L (25-40) % [place] % (Auto) 6.5 (3-14) % Eos % (Auto) 2.8 (2-4) % Baso % (Auto) 1.0 (0-2) % Neut # (Auto) 4100 (5709-5938) /uL Sodium 140 (137-145) mmol/L Potassium 4.2 (3.4-5.1) mmol/L Chloride 105 (98-107) mmol/L Carbon Dioxide 26 (22-32) mmol/L BUN 14 (7-17) mg/dL Creatinine 0.70 (0.52-1.04) mg/dL Estimated GFR > 60.0 (>60) mL/min BUN/Creatinine Ratio 20.0 (6-22) Glucose 91 (70-100) mg/dL Lactate (0.7-2.1) mmol/L Calcium 9.3 (8.4-10.2) mg/dL Total Bilirubin 0.6 (0.2-1.3) mg/dL AST 33 (14-36) IU/L ALT 23 (9-52) IU/L Alkaline Phosphatase 38 (38-126) U/L Total Protein 6.8 (6.3-8.2) g/dL Albumin 4.2 (3.5-5.0) g/dL Globulin 2.6 (1.7-4.1) g/dL Albumin/Globulin Ratio 1.6 (1.0-2.8) Procalcitonin < 0.05 (<0.5) ng/mL 03/11/18 Range/Units 14:10 WBC (4.5-11.0) X10^3/uL RBC (4.0-5.2) X10^6/uL Hgb (12.0-16.0) g/dL Hct (36-46) % MCV (80-100) fL MCH (26-34) PG MCHC (30-36) % RDW (11.6-14.8) % Plt Count (150-400) X10^3/uL Neut % (Auto) (50-75) % Lymph % (Auto) (25-40) % [place] % (Auto) (3-14) % Eos % (Auto) (2-4) % Baso % (Auto) (0-2) % Neut # (Auto) (0183-6487) /uL Sodium (137-145) mmol/L Potassium (3.4-5.1) mmol/L Chloride (98-107) mmol/L Carbon Dioxide (22-32) mmol/L BUN (7-17) mg/dL Creatinine (0.52-1.04) mg/dL Estimated GFR (>60) mL/min BUN/Creatinine Ratio (6-22) Glucose (70-100) mg/dL Lactate 0.7 (0.7-2.1) mmol/L Calcium (8.4-10.2) mg/dL Total Bilirubin (0.2-1.3) mg/dL AST (14-36) IU/L ALT (9-52) IU/L Alkaline Phosphatase (38-126) U/L Total Protein (6.3-8.2) g/dL Albumin (3.5-5.0) g/dL Globulin (1.7-4.1) g/dL Albumin/Globulin Ratio (1.0-2.8) Procalcitonin (<0.5) ng/mL Imaging Data CT face: Radiologist's impression: PROCEDURE: CT FACIAL BONES W CON INDICATIONS: Dog bite 2 days ago with worsening swelling right cheek TECHNIQUE: After the administration of intravenous contrast, 2.5 mm axial sections acquired from the mid-neck to the frontal sinuses, with coronal and sagittal reformats. For radiation dose reduction, the following was used: automated exposure control, adjustment of mA and/or kV according to patient size. COMPARISON: None. FINDINGS: Image quality: Excellent. Soft tissues: Inflammatory stranding and swelling noted in the subcutaneous tissues of the right malar eminence. No enlarged lymph nodes. Vascular: Visualized vascular structures appear patent throughout. Bony vascular foramina and canals appear normal. Bones: Facial bones appear intact, without fractures, erosions, or destruction. Cervical spine degenerative disc disease and facet arthropathy noted. Visualized portions of the skull base and auditory canals also appear normal. Sinuses: Paranasal sinuses are aerated without fluid levels, mucosal thickening , or mucoceles. Mastoid air cells are aerated. IMPRESSION: 1. Soft tissue swelling involving the right cheek compatible with cellulitis. 2. No abscess. 3. No fracture. Dictated by: Adrianna Burkett MD, PhD on 03/11/2018 at 15:01 Approved by: Adrianna Burkett MD, PhD on 03/11/2018 at 15:06 [facility] Narrative Medical decision making narrative: CBC and Chem panel were obtained were unremarkable. Procalcitonin was negative lactate was negative. CT of the face was negative for abscess or hematoma however so sign consistent with cellulitis. She was started on IV Rocephin in the emergency room. Called Dr. Roberts ENT who recommends also putting patient on clindamycin which was also started in the emergency room. He recommended admission with observation and IV antibiotics. Discussed case with Dr. Calero hospitalist who accepted patient. Patient admitted for inpatient services <Sebas Lainez, DO - Last Filed: 03/12/18 07:20> Lab Data Lab Results 03/11/18 03/11/18 03/11/18 Range/Units 14:10 14:10 14:10 WBC 5.9 (4.5-11.0) X10^3/uL RBC 4.59 (4.0-5.2) X10^6/uL Hgb 14.1 (12.0-16.0) g/dL Hct 41.3 (36-46) % MCV 90.0 (80-100) fL MCH 30.7 (26-34) PG MCHC 34.2 (30-36) % RDW 13.0 (11.6-14.8) % Plt Count 203 (150-400) X10^3/uL Neut % (Auto) 70.4 (50-75) % Lymph % (Auto) 19.3 L (25-40) % [place] % (Auto) 6.5 (3-14) % Eos % (Auto) 2.8 (2-4) % Baso % (Auto) 1.0 (0-2) % Neut # (Auto) 4100 (2685-0841) /uL Sodium 140 (137-145) mmol/L Potassium 4.2 (3.4-5.1) mmol/L Chloride 105 (98-107) mmol/L Carbon Dioxide 26 (22-32) mmol/L BUN 14 (7-17) mg/dL Creatinine 0.70 (0.52-1.04) mg/dL Estimated GFR > 60.0 (>60) mL/min BUN/Creatinine Ratio 20.0 (6-22) Glucose 91 (70-100) mg/dL Lactate (0.7-2.1) mmol/L Calcium 9.3 (8.4-10.2) mg/dL Total Bilirubin 0.6 (0.2-1.3) mg/dL AST 33 (14-36) IU/L ALT 23 (9-52) IU/L Alkaline Phosphatase 38 (38-126) U/L Total Protein 6.8 (6.3-8.2) g/dL Albumin 4.2 (3.5-5.0) g/dL Globulin 2.6 (1.7-4.1) g/dL Albumin/Globulin Ratio 1.6 (1.0-2.8) Procalcitonin < 0.05 (<0.5) ng/mL 03/11/18 Range/Units 14:10 WBC (4.5-11.0) X10^3/uL RBC (4.0-5.2) X10^6/uL Hgb (12.0-16.0) g/dL Hct (36-46) % MCV (80-100) fL MCH (26-34) PG MCHC (30-36) % RDW (11.6-14.8) % Plt Count (150-400) X10^3/uL Neut % (Auto) (50-75) % Lymph % (Auto) (25-40) % [place] % (Auto) (3-14) % Eos % (Auto) (2-4) % Baso % (Auto) (0-2) % Neut # (Auto) (9312-5833) /uL Sodium (137-145) mmol/L Potassium (3.4-5.1) mmol/L Chloride (98-107) mmol/L Carbon Dioxide (22-32) mmol/L BUN (7-17) mg/dL Creatinine (0.52-1.04) mg/dL Estimated GFR (>60) mL/min BUN/Creatinine Ratio (6-22) Glucose (70-100) mg/dL Lactate 0.7 (0.7-2.1) mmol/L Calcium (8.4-10.2) mg/dL Total Bilirubin (0.2-1.3) mg/dL AST (14-36) IU/L ALT (9-52) IU/L Alkaline Phosphatase (38-126) U/L Total Protein (6.3-8.2) g/dL Albumin (3.5-5.0) g/dL Globulin (1.7-4.1) g/dL Albumin/Globulin Ratio (1.0-2.8) Procalcitonin (<0.5) ng/mL Discharge Plan Departure Patient Disposition: Admitted As Inpatient Clinical Impression: Dog bite Discharge Date/Time: 03/11/18 18:05 Interventions: ED Discharge Assessment Last Done: 03/11/18 18:05 Admit Date/Time: 03/11/18 17:40 Admit Provider: Matheus Calero <Sebas Lainez DO - Last Filed: 03/12/18 07:20> Cosign ED Attending Cosignature Attestation: I was available for consultation during this patient's emergency department encounter
--- NOTE | 2018-03-11 17:55 | PC.NURSE ---
Meal provided. pt resting in room
[2018-03-11] MEDS: SODIUM CHLORIDE 0.9% 1,000 ML 125 ML IV (18:36)
--- NOTE | 2018-03-11 18:49 | PC.NURSE ---
pt to room 219 from ED via wheelchair,personal belongings accounted for and placed in closet per pt, pt oriented to room and hospital routine, bed in lowest position, call light within reach, no further questions at this time
--- NOTE | 2018-03-11 19:19 | PM.HP.1 ---
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 She was seen initially in the walk-in clinic placed on Augmentin she had some Steri-Strips placed over it but no sutures were done. Over the course of the last 2 days the swelling and redness has gotten worse the pain got worse so she has failed outpatient antibiotic treatment. Patient History Family & Social History Social History: household members significant other,family,children Prior Living Arrangements House Safety & Behavioral: Feels Safe in Current Yes Environment Been Physically Hurt or No Threatened By a Person Suicidal Ideation Description None Tobacco & Substance use: Smoking Status Never smoker alcohol intake frequency 0-2 drinks per day Substance Use Type does not use Meds Home Medications Medication Instructions Recorded Confirmed Type amoxicillin-pot clavulanate 1 tab PO BID #10 tab 03/09/18 03/11/18 Rx [Augmentin] fluconazole 150 mg PO .other #2 tab 03/09/18 03/11/18 Rx Allergies Allergy/AdvReac Type Severity Reaction Status Date / Time No Known Drug Allergies Allergy Verified 03/09/18 13:02 Review of Systems Review of Systems All systems reviewed & are unremarkable except as noted in HPI and below Exam Vital Signs (past 8 hours): - 03/11/18 11:30 03/11/18 17:58 03/11/18 18:31 Temperature 97.6 F 97.0 F L Pulse Rate 73 71 70 Respiratory Rate 16 20 17 Blood Pressure 112/77 113/69 Blood Pressure [Left Arm] 104/69 Pulse Oximetry 98 98 100 Oxygen Delivery Method Room Air Oxygen Flow Rate 0 Narrative Exam Narrative: Pleasant middle-aged female no acute distress HEENT exam the right side of her face maxillary area red swollen tender the erythema goes up to around the right eye the right eye self not involved with this. Neck is supple Lungs clear Heart regular rhythm Objective Labs Result Diagrams: 03/11/18 14:10 03/11/18 14:10 Labs: Laboratory Results - last 24 hr 03/11/18 03/11/18 03/11/18 14:10 14:10 14:10 WBC 5.9 RBC 4.59 Hgb 14.1 Hct 41.3 MCV 90.0 MCH 30.7 MCHC 34.2 RDW 13.0 Plt Count 203 Neut % (Auto) 70.4 Lymph % (Auto) 19.3 L [place] % (Auto) 6.5 Eos % (Auto) 2.8 Baso % (Auto) 1.0 Neut # (Auto) 4100 Sodium 140 Potassium 4.2 Chloride 105 Carbon Dioxide 26 BUN 14 Creatinine 0.70 Estimated GFR > 60.0 BUN/Creatinine Ratio 20.0 Glucose 91 Lactate Calcium 9.3 Total Bilirubin 0.6 AST 33 ALT 23 Alkaline Phosphatase 38 Total Protein 6.8 Albumin 4.2 Globulin 2.6 Albumin/Globulin Ratio 1.6 Procalcitonin < 0.05 03/11/18 14:10 WBC RBC Hgb Hct MCV MCH MCHC RDW Plt Count Neut % (Auto) Lymph % (Auto) [place] % (Auto) Eos % (Auto) Baso % (Auto) Neut # (Auto) Sodium Potassium Chloride Carbon Dioxide BUN Creatinine Estimated GFR BUN/Creatinine Ratio Glucose Lactate 0.7 Calcium Total Bilirubin AST ALT Alkaline Phosphatase Total Protein Albumin Globulin Albumin/Globulin Ratio Procalcitonin Assessment & Plan Plan: Assessment/Plan Narrative: One. Facial cellulitis secondary to a dog bite that progressed despite appropriate antibiotic outpatient therapy. The patient will be admitted to the hospital IV ceftriaxone and clindamycin will be administered. The ER had called the ENT surgeon and he suggested the clindamycin in addition to the ceftriaxone. We could also use Flagyl in place of clindamycin if needed. Patient will apply be here for 48 hr giving IV antibiotics. Quality VTE Deep Vein Thrombosis/Pulmonary Embolism Present on Admission: No
[2018-03-12] VITALS (9 sets, daily range): BP systolic 103–110; BP diastolic 58–72; PULSE 54–60; RESP 16–20; TEMP 36.5–37; O2SAT 94–99
[2018-03-12] MEDS: SODIUM CHLORIDE 0.9% 1,000 ML 125 ML IV (03:44)
[2018-03-12] MEDS: CLINDAMYCIN 600 MG/50 ML PIGGYBACK 50 MG IV ×4 (03:45→23:45)
--- NOTE | 2018-03-12 09:56 | P.PN_ITS ---
Subjective Date Patient Seen: 03/12/18 Time Patient Seen: 09:30 Interval history: Patient feels her swelling on the right side of her face is getting worse. She does not have worsening of pain. She remains to be afebrile. Exam Vital Signs (past 8 hours): - 03/12/18 05:56 Temperature 98.6 F Pulse Rate 54 L Respiratory Rate 16 Blood Pressure 110/69 Pulse Oximetry 99 Oxygen Delivery Method Room Air Oxygen Flow Rate 0 Narrative Exam Narrative: Pleasant middle-aged female no acute distress HEENT exam the right side of her face maxillary area red swollen tender the erythema goes up to around the right eye the right eye self not involved with this. There is some mild blistering with slightly yellow colored crusting on the surface in the center of the erythema around the bite wound. Neck is supple Lungs clear Heart regular rhythm Objective Labs Result Diagrams: 03/11/18 14:10 03/11/18 14:10 Labs: Laboratory Results - last 24 hr 03/11/18 03/11/18 03/11/18 14:10 14:10 14:10 WBC 5.9 RBC 4.59 Hgb 14.1 Hct 41.3 MCV 90.0 MCH 30.7 MCHC 34.2 RDW 13.0 Plt Count 203 Neut % (Auto) 70.4 Lymph % (Auto) 19.3 L [place] % (Auto) 6.5 Eos % (Auto) 2.8 Baso % (Auto) 1.0 Neut # (Auto) 4100 Sodium 140 Potassium 4.2 Chloride 105 Carbon Dioxide 26 BUN 14 Creatinine 0.70 Estimated GFR > 60.0 BUN/Creatinine Ratio 20.0 Glucose 91 Lactate Calcium 9.3 Total Bilirubin 0.6 AST 33 ALT 23 Alkaline Phosphatase 38 Total Protein 6.8 Albumin 4.2 Globulin 2.6 Albumin/Globulin Ratio 1.6 Procalcitonin < 0.05 03/11/18 14:10 WBC RBC Hgb Hct MCV MCH MCHC RDW Plt Count Neut % (Auto) Lymph % (Auto) [place] % (Auto) Eos % (Auto) Baso % (Auto) Neut # (Auto) Sodium Potassium Chloride Carbon Dioxide BUN Creatinine Estimated GFR BUN/Creatinine Ratio Glucose Lactate 0.7 Calcium Total Bilirubin AST ALT Alkaline Phosphatase Total Protein Albumin Globulin Albumin/Globulin Ratio Procalcitonin Assessment & Plan Plan: Assessment/Plan Narrative: 1. Facial cellulitis secondary to a dog bite that progressed despite appropriate antibiotic outpatient therapy. I have talked to Dr. Arevalo, infectious Disease specialist regarding to antibiotics choice. We are going to discontinue ceftriaxone. Start Unasyn 3 g IV q.6 hours. Continue clindamycin IV. Continue monitor her clinically. DC IV fluid. Quality VTE Deep Vein Thrombosis/Pulmonary Embolism Present on Admission: No
[2018-03-12] MEDS: AMPICILLIN/SULBACTAM 3 GM 3 GM in SODIUM CHLORIDE 0.9% 100 ML IV ×3 (12:24→21:57)
--- NOTE | 2018-03-12 15:58 | CM.DANOTE ---
DCP Initial: Per chart: Facial cellulitis secondary to a dog bite that progressed despite appropriate antibiotic outpatient therapy. I have talked to Dr. Arevalo, infectious Disease specialist regarding to antibiotics choice. We are going to discontinue ceftriaxone. Start Unasyn 3 g IV q.6 hours. Continue clindamycin IV. Continue monitor her clinically. Plan: Needs assessment. Probable return to home....? need for IV antibiotics post DC. Mike Pringle RN
[2018-03-13] VITALS (8 sets, daily range): BP systolic 107–118; BP diastolic 67–74; PULSE 56–115; RESP 14–20; TEMP 36.3–36.9; O2SAT 97–99
[2018-03-13] MEDS: AMPICILLIN/SULBACTAM 3 GM 3 GM in SODIUM CHLORIDE 0.9% 100 ML IV ×4 (03:03→21:35)
[2018-03-13] MEDS: CLINDAMYCIN 600 MG/50 ML PIGGYBACK 50 MG IV ×4 (04:14→22:40)
--- NOTE | 2018-03-13 05:27 | PC.NURSE ---
Assumed care of pt room outgoing shift at 2300 7-28. Pt awake. cooperated in shift report. no questions at this time. updated on POC. IV abx and use of call light. Pt race is very swollen, blistered and central to wound (one inch below laceration) has some serous fluid drainage (yellowish/clear in color). Pt asked if she wanted Ice- pt stated that the ice felt good, but then once it was taken off it hurt more than to not have Ice on at all. Pt refuses pain medication. Pt self in room and ambulates steady gait. able to maneuver IV pole. belongings and call light within each. will continue to monitor pt for safety.
--- NOTE | 2018-03-13 08:46 | CM.DANOTE ---
DCP: Case received,EMR reviewed and met with patient. Introduced self and role. DCP template completed with information currently available. Patient is a 47 year old female who admitted on 03/11 evening to the care of the hospitalist team. Payer: Confirmed [employer] Patient was admitted secondary to a dog bite on her face. 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 Patient is here for IV antibiotic treatment. P: Will go home when she is able to take oral antibiotics. Tona Armstrong RN/Nursing Manager
--- NOTE | 2018-03-13 09:55 | PM.PN.1 ---
Subjective Date Patient Seen: 03/13/18 Time Patient Seen: 09:50 Interval history: Patient still has significant swelling and tenderness on the right side of her face. She has noticed loose stool earlier this morning. She is wondering if she should be started on a probiotics. Exam Vital Signs (past 8 hours): - 03/13/18 05:10 03/13/18 07:00 03/13/18 08:07 Temperature 97.4 F L 98.1 F Pulse Rate 56 L 115 H Respiratory Rate 16 17 Blood Pressure 111/67 118/74 Pulse Oximetry 97 98 99 Oxygen Delivery Method Room Air Oxygen Flow Rate 0 Narrative Exam Narrative: General: Pleasant middle-aged female no acute distress HEENT exam the right side of her face maxillary area red swollen tender the erythema goes up to around the right eye the right eye self not involved with this. There is some mild blistering with slightly yellow colored crusting on the surface in the center of the erythema around the bite wound. There is some bruising on the right lower part of the induration which is new. Neck is supple Lungs clear Heart regular rhythm Objective Labs Result Diagrams: 03/11/18 14:10 03/11/18 14:10 Assessment & Plan Plan: Assessment/Plan Narrative: 1. Facial cellulitis secondary to a dog bite that progressed despite appropriate antibiotic outpatient therapy. Continue Unasyn 3 g IV q.6 hours. Continue clindamycin IV. Continue monitor her clinically. 2. Loose bowel movement: With the use of antibiotics, there is concern of possible C diff colitis. We will check his stool for C diff toxin. We will also start acidophilus 3 times a day with meals. Quality VTE Deep Vein Thrombosis/Pulmonary Embolism Present on Admission: No
[2018-03-13] MEDS: SODIUM CHLORIDE 0.9% FLUSH 10 ML IV ×2 (09:57→21:35)
[2018-03-13] MEDS: ACIDOPHILUS/L.BULG/BIF.B/S.THERMOP TABLET 1 EACH PO ×2 (11:47→16:08)
--- NOTE | 2018-03-13 12:28 | CM.DPC ---
DCP Cont: Patient is continuing with IV therapy. Will not go home today, is having stool checked to rule out C-Diff: DCP Continue to plan and assess. Plan is for her to go home. Tona Armstrong RN/Concrete Mixer Operator
[2018-03-14] VITALS (8 sets, daily range): BP systolic 102–116; BP diastolic 54–70; PULSE 61–80; RESP 16–18; TEMP 36.3–36.7; O2SAT 96–98
--- NOTE | 2018-03-14 01:35 | PC.NURSE ---
Assumed care of pt room outgoing shift at 2300 7-29. Pt awake. cooperated in shift report. no questions at this time. updated on POC. IV abx infusing but pt stated that it hurts, it is red, swollen a bit and seems irritated. IV flushed and pt stated it hurt more, IV removed. new site inserted. Pt uses call light. 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 Pt refuses pain medication. Pt self in room and ambulates steady gait. able to maneuver IV pole. belongings and call light within each. will continue to monitor pt for safety. pt makes needs known.
[2018-03-14] MEDS: AMPICILLIN/SULBACTAM 3 GM 3 GM in SODIUM CHLORIDE 0.9% 100 ML IV ×4 (03:46→21:29)
[2018-03-14] MEDS: SODIUM CHLORIDE 0.9% FLUSH 10 ML IV ×3 (03:47→21:23)
[2018-03-14] MEDS: SODIUM CHLORIDE 0.9% 250 ML 21 ML IV (03:48)
[2018-03-14] MEDS: CLINDAMYCIN 600 MG/50 ML PIGGYBACK 50 MG IV ×4 (04:56→22:59)
--- NOTE | 2018-03-14 07:39 | PM.PN.1 ---
Subjective Date Patient Seen: 03/14/18 Time Patient Seen: 07:39 Interval history: She does complain of some drainage from the cellulitis more a weepage of serous fluid. She feels that the pain and inflammation has improved Exam Vital Signs (past 8 hours): - 03/14/18 03:00 Temperature 97.4 F L Pulse Rate 63 Respiratory Rate 18 Blood Pressure 116/68 Pulse Oximetry 98 Oxygen Delivery Method Room Air Oxygen Flow Rate 0 Narrative Exam Narrative: Resting comfortably the HEENT exam shows erythema and swelling and warmth in the right cheek area involving the lower eyelid area and now bruising down along the mandible on the right. Lungs are clear Heart regular rhythm Objective Labs Result Diagrams: 03/11/18 14:10 03/11/18 14:10 Assessment & Plan Plan: Assessment/Plan Narrative: 1. Facial cellulitis secondary to a dog bite that progressed despite appropriate antibiotic outpatient therapy. Continue Unasyn 3 g IV q.6 hours. Continue clindamycin IV. There seems to be some improvement in the last 24 hr clinically she started to feel like it is reached peak in now starting to resolve. I would suggest another 24 hr IV antibiotics and then possibly home tomorrow on oral antibiotics. Suggest continuing for a total of 10 days of antibiotics between oral and IV. 2. Loose bowel movement: With the use of antibiotics, there is concern of possible C diff colitis. We will check his stool for C diff toxin. We will also start acidophilus 3 times a day with meals Quality VTE Deep Vein Thrombosis/Pulmonary Embolism Present on Admission: No
[2018-03-14] MEDS: ACIDOPHILUS/L.BULG/BIF.B/S.THERMOP TABLET 1 EACH PO ×3 (08:31→17:29)
[2018-03-14] MEDS: ACETAMINOPHEN 325 MG TABLET 650 MG PO (10:47)
--- NOTE | 2018-03-14 11:14 | PC.NURSE ---
AM NOTE - pt is alert, some mild discomfort r cheek and jaw area, manoj po and states no difficulty swallowing, r cheek, along nares to jaw and extending under r eye laterally is red and edematous, small slit opening mid r cheek w/o drainage, pt states some occasional serous drainage overnight, doesn't manoj ice to area, did agree later am 650mg po tylenol for jaw discomfort, healing bruise r jaw, did collect formed stool and per lab, sample rejected for cdiff unless liquid, denies nausea.
[2018-03-14] MEDS: ONDANSETRON 4 MG/2 ML INJ IV (15:35)
[2018-03-15] VITALS (8 sets, daily range): BP systolic 94–119; BP diastolic 56–75; PULSE 58–68; RESP 16; TEMP 36.2–36.6; O2SAT 98–99
[2018-03-15] MEDS: AMPICILLIN/SULBACTAM 3 GM 3 GM in SODIUM CHLORIDE 0.9% 100 ML IV ×4 (03:34→22:14)
--- NOTE | 2018-03-15 04:13 | PC.NURSE ---
Assumed care of pt from outgoing shift at 2300 7-30. Pt awake. no questions at this time. updated on POC. IV abx infusing. complaint with nursing assessment. Pt uses call light. Pt face is less swollen, redness only to apple of cheek and slightly under eye, also improving from last few nights. blisters are drying and laceration CHYNA, well approximated small scab formed. Pt self in room and ambulates steady gait. able to maneuver IV pole. belongings and call light within each. will continue to monitor pt for safety. pt makes needs known.
[2018-03-15] MEDS: CLINDAMYCIN 600 MG/50 ML PIGGYBACK 50 MG IV ×4 (04:47→23:51)
[2018-03-15] MEDS: SODIUM CHLORIDE 0.9% 250 ML 21 ML IV (04:48)
[2018-03-15] MEDS: ACIDOPHILUS/L.BULG/BIF.B/S.THERMOP TABLET 1 EACH PO ×3 (08:09→17:39)
[2018-03-15] MEDS: SODIUM CHLORIDE 0.9% FLUSH 10 ML IV ×2 (10:15→22:45)
[2018-03-15] MEDS: ONDANSETRON 4 MG/2 ML INJ IV (10:18)
--- NOTE | 2018-03-15 11:12 | PC.NURSE ---
AM NOTE - pt is alert, no complaints discomfort and declines tylenol, continues with edema and redness r side face from under eye, along nares and laterally accross cheek and down jaw, intense redness at center cheek with small slit opening with occassional serous drainage, declines ice pack, washing with soap and water, ambul this am independently hallway, after breakfast did report some nausea, given 4mg iv zofran and iwlson chata and nausea resolved, ra 99%, hr 66.
--- NOTE | 2018-03-15 18:42 | P.PN_ITS ---
Subjective Date Patient Seen: 03/15/18 Time Patient Seen: 16:39 Interval history: History of present illness Follow-up on patient with dog bite to the right side of the face by a by a coyle- mixed breed dog Review of systems Patient feels that the swelling and discomfort to the right side of her face is remarkably lessened. Less erythema noted no chest pain or shortness of breath no palpitations no nausea Exam Vital Signs (past 8 hours): - 03/15/18 12:00 03/15/18 15:25 Temperature 98 F 97.3 F L Pulse Rate 60 67 Respiratory Rate 16 16 Blood Pressure 116/72 102/66 Pulse Oximetry 99 98 Oxygen Delivery Method Room Air Oxygen Flow Rate 0 Narrative Exam Narrative: Physical exam general appearance Patient awake and alert no apparent distress vital Signs as noted Psychiatric Awake and alert well oriented mood is pleasant cooperative Skin The region of the cellulitis to the face appears to be withdrawing with less induration and swelling which is evident on exam erythema also less pronounced compared to yesterday Respiratory Clear to auscultation with no wheezes no crackles Cardiovascular Regular in rate and rhythm no murmurs rubs or gallops GI Soft and nontender positive bowel sounds no distension no guarding Neurologic No focal neural neurologic deficit. Cranial nerves 2-12 grossly intact Objective Labs Result Diagrams: 03/11/18 14:10 03/11/18 14:10 Assessment & Plan Plan: Assessment/Plan Narrative: 1. Facial cellulitis secondary to a coyle mix dog bite that progressed despite appropriate antibiotic outpatient therapy. Continue Unasyn 3 g IV q.6 hours and clindamycin IV. Noticeable improvement in the past 48 hrs. Less swelling noted to face. Will continue IV antibiotics another 24 hours. Note the most common pathogens include anaerobes, aerobes and the outliar Pasturella that is the most likely cause. Combo IV antibiotics is appropriate. Will consider discharge on Augmentin for total antibiotic coverage of 14 days. 2. Loose bowel movement: With the use of antibiotics, there is concern of possible C diff colitis. stool check for C diff toxin. 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 Time Spent With Patient Time with patient: 25 - 35 minutes Quality VTE Deep Vein Thrombosis/Pulmonary Embolism Present on Admission: No
[2018-03-16 01:05] VITALS: O2SAT 98
[2018-03-16] MEDS: AMPICILLIN/SULBACTAM 3 GM 3 GM in SODIUM CHLORIDE 0.9% 100 ML IV ×2 (03:48→10:26)
[2018-03-16] MEDS: CLINDAMYCIN 600 MG/50 ML PIGGYBACK 50 MG IV ×2 (05:19→12:19)
--- NOTE | 2018-03-16 06:43 | PC.NURSE ---
Assumed care of pt from outgoing shift at 2300 7-31. Pt awake. no questions at this time. updated on POC. IV abx started and infusing. tolerating. compliant with nursing assessment. Pt uses call light. Pt face is barely swollen, redness only to apple of cheek. no signs of blisters. Pt self in room and ambulates steady gait. able to maneuver IV pole. belongings and call light within reach. will continue to monitor pt for safety. pt makes needs known. 0630- coffee given, IV infusion complete. denies further needs at this time. will continue to monitor.
[2018-03-16 07:00] VITALS: BP 117/71; PULSE 68; RESP 16; TEMP 36.7; O2SAT 98
[2018-03-16 09:00] LABS: Add Manual Diff / Slide Review NO; Basophils Percent Auto 1.4 % (0-2); Eosinophils Percent Auto 4.1 % (2-4); Hemoglobin 14.4 g/dL (12.0-16.0); Lymphocytes Percent Auto 22.8 % (25-40); Mean Corpuscular HGB Conc 34.2 % (30-36); Mean Corpuscular Hemoglobin 30.7 PG (26-34); Mean Corpuscular Volume 89.8 fL (80-100); Monocytes Percent Auto 7.2 % (3-14); Neutrophils Absolute Auto 2600 /uL (3000-5900); Neutrophils Percent Auto 64.5 % (50-75); Platelet Count 201 X10^3/uL (150-400); Red Blood Cell Count 4.67 X10^6/uL (4.0-5.2); Red Cell Distribution Width 13.2 % (11.6-14.8)
[2018-03-16 09:14] LABS: Alanine Aminotransferase 23 IU/L (9-52); Albumin 4.2 g/dL (3.5-5.0); Albumin Globulin Ratio 1.6 (1.0-2.8); Alkaline Phosphatase 36 U/L (38-126); Aspartate Aminotransferase 21 IU/L (14-36); BUN Creatinine Ratio 15.6 (6-22); Bilirubin Total 0.5 mg/dL (0.2-1.3); Blood Urea Nitrogen 14 mg/dL (7-17); Calcium 9.5 mg/dL (8.4-10.2); Carbon Dioxide 30 mmol/L (22-32); Chloride 101 mmol/L (98-107); Estimated Glomerular Filt Rate > 60.0 mL/min (>60); Globulin 2.7 g/dL (1.7-4.1); Glucose 91 mg/dL (70-100); HEMOLYSIS < 15 (0-50); Potassium 4.2 mmol/L (3.4-5.1); Sodium 139 mmol/L (137-145); Total Protein 6.9 g/dL (6.3-8.2)
[2018-03-16] MEDS: SODIUM CHLORIDE 0.9% FLUSH 10 ML IV (10:26)
[2018-03-16] MEDS: ACIDOPHILUS/L.BULG/BIF.B/S.THERMOP TABLET 1 EACH PO ×2 (10:26→12:22)
[2018-03-16 11:50] VITALS: BP 119/75; PULSE 63; RESP 18; TEMP 36.3; O2SAT 99
--- NOTE | 2018-03-16 14:39 | P.DS_ITS ---
History of Present Illness Chief complaint: DOG BITE SWELLING Discharge Providers Date of admission: 03/11/18 17:40 Consults: 03/11/18 16:32 Consult to Physician Routine Comment: Consulting Provider: Matheus Calero Reason for consultation: gay Has provider been notified: Yes Discharge provider: Elliot Carlton MD Summary Discharge Diagnosis: Facial infection secondary to dog bite. 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 Patient was provided Augmentin as an outpatient and antibiotic failed to treat the infection adequately. Patient was admitted for IV antibiotic administration and continued close monitoring of her progress and healing Unasyn and Clindamycin was given IV during hosp course. Patient's facial swelling and erythema and tenderness subsided quite considerably during hospital course. Patient was stable for discharge on Mar 16 and to be provided continued care with Clindamycin 300 mg po qid for another ten days. Follow up with PCP in one week recommended. Status at Discharge Functional status at discharge: independent ambulation Overall status at discharge: patient is progressing back to baseline Time Spent with Patient Greater than 30 minutes Exam Vital Signs (past 8 hours): - 03/16/18 07:00 03/16/18 11:50 Temperature 98.1 F 97.4 F L Pulse Rate 68 63 Respiratory Rate 16 18 Blood Pressure 117/71 119/75 Pulse Oximetry 98 99 Oxygen Delivery Method Room Air Oxygen Flow Rate 0 Narrative Exam Narrative: General appearance Patient awake and alert. no apparent distress. well oriented. Skin much less swelling and erythema to face on day of discharge. less tenderness noted. Cardio Reg in rate and rhythm. no murmurs. Resp Clear to auscultation. No wheezing nor crackles Objective Labs Result Diagrams: 03/16/18 08:20 03/16/18 08:20 Labs: Laboratory Results - last 24 hr 03/16/18 03/16/18 08:20 08:20 WBC 4.0 L RBC 4.67 Hgb 14.4 Hct 42.0 MCV 89.8 MCH 30.7 MCHC 34.2 RDW 13.2 Plt Count 201 Neut % (Auto) 64.5 Lymph % (Auto) 22.8 L [place] % (Auto) 7.2 Eos % (Auto) 4.1 H Baso % (Auto) 1.4 Neut # (Auto) 2600 L Sodium 139 Potassium 4.2 Chloride 101 Carbon Dioxide 30 BUN 14 Creatinine 0.90 Estimated GFR > 60.0 BUN/Creatinine Ratio 15.6 Glucose 91 Calcium 9.5 Total Bilirubin 0.5 AST 21 ALT 23 Alkaline Phosphatase 36 L Total Protein 6.9 Albumin 4.2 Globulin 2.7 Albumin/Globulin Ratio 1.6 Discharge Plan Discharge Plan Patient Disposition: Home, Self-Care Discharge comment: follow up with PCP in one week Discharge Med Rec/Prescriptions Prescriptions: New clindamycin HCl 300 mg capsule 300 mg PO QID MDD 1,200 mg Qty: 40 RF: 0 Lactobacillus acidophilus [Probiotic Acidophilus] 1.5 mg (250 million cell) capsule 500 mmu cells PO TID 10 Days Qty: 1 RF: 0 Discontinued amoxicillin-pot clavulanate [Augmentin] 875-125 mg tablet 1 tab PO BID Qty: 10 RF: 0 fluconazole 150 mg tablet 150 mg PO .other Qty: 2 RF: 0 Provider Discharge Instructions Diet: Diet as Tolerated Activity: as tolerated. 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 Wound Care Report to your healthcare provider any signs of infection, such as:: chills, fever, increased pain and unusual drainage Visit Report/Discharge Packet Instructions: DI for Cellulitis -- Adult, Cellulitis, Clindamycin Discharge Data Attending Provider: Matheus Calero Admit Date/Time: 03/11/18 17:40 Quality VTE Deep Vein Thrombosis/Pulmonary Embolism Present on Admission: No
[2018-03-16 17:53] LABS: C-Reactive Protein Quant < 0.5 mg/dL (<1.0)
== END 2018-03-16 14:57 | disposition home or self-care (01) | DRG 383 ==
LOC: ED 16:42 → AC 17:41
PROVIDERS: Internal Medicine; Admitting Provider Internal Medicine; Emergency Provider Nurse Practitioner Family; Visit Provider Internal Medicine
DX: L03.211 Cellulitis of face (principal); S01.451A Open bite of right cheek and temporomandibular area, initial encounter; W54.0XXA Bitten by dog, initial encounter; Y92.29 Other specified public building as the place of occurrence of the external cause; Y99.0 Civilian activity done for income or pay
CPT/HCPCS: 36415; 36591; 36592; 70487; 80053; 83605; 84145; 85025; 86140; 87493; 96365; 96375; 96376; 99283; 99284; J0295; J0696; J2405; Q9967

== ENCOUNTER 2023-08-07 17:47 | Emergency (ER) | payer OTHER, SELFPAY ==
[2018-03-11 18:57] VITALS: BMI 24.1
[2023-08-07 17:51] VITALS: BP 125/79; PULSE 72; RESP 18; TEMP 37.5; O2SAT 99; BMI 24.3
--- NOTE | 2023-08-07 19:25 | ED.BURNSMOKE ---
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 When she took her boots off she noted a linear burn or rubbing wound over the lateral aspect of the right calf. They were concerned that it was actually secondary to a wire or battery in the sock. Clearly did not bother her enough at the time that she needed to stop her ride. She was somewhat surprised when she took her socks off to find the wound there. They come in for further evaluation. Related Data Previous Rx's Medication Instructions Recorded clindamycin HCl 300 mg capsule 300 mg PO QID #40 caps 03/16/18 cephalexin 500 mg capsule 500 mg PO TID #15 caps 08/07/23 Allergies Allergy/AdvReac Type Severity Reaction Status Date / Time No Known Drug Allergies Allergy Verified 03/09/18 13:02 Review of Systems Review of Systems Narrative: Pertinent positive and negative findings as per HPI Patient History Social History household members: significant other, family and children Smoking Status: Never smoker Smoking Status: Never smoker alcohol intake frequency: 0-2 drinks per day Substance Use Type: does not use Exam Initial Vital Signs Initial Vital Signs: Vital Signs Temperature 99.5 F 08/07/23 17:51 Pulse Rate 72 08/07/23 17:51 Respiratory Rate 18 08/07/23 17:51 Blood Pressure 125/79 08/07/23 17:51 Pulse Oximetry 99 08/07/23 17:51 Oxygen Delivery Method Room Air 08/07/23 17:51 General: Alert appropriate in no acute distress Respiratory: Able to speak in full sentences, no obvious respiratory distress Skin: No obvious rashes, warm and dry Neurologic: Grossly intact no obvious asymmetries or abnormalities Psych: appropriate insight and affect, cooperative Extremity: Right lateral calf with a 3 mm by 4 cm horizontal shallow wound. There is some mild eschar over it it is unclear if this is actually a thermal burn or a rubbed area. The wound itself is quite superficial and minimally erythematous minimally tender. Distally she is neurovascularly intact. Course Vital Signs Vital signs: Vital Signs - 8 hr 08/07/23 17:51 Temperature 99.5 F Pulse Rate 72 Respiratory Rate 18 Blood Pressure 125/79 Pulse Oximetry 99 Oxygen Delivery Method Room Air MDM - Burn/Smoke Inhalation MDM Narrative Medical decision making narrative: 53-year-old woman with a superficial burn on the right outer calf. No evidence of infection or deep muscle involvement. Differential includes minor injury, deeper injury, abscess On exam the burn involves epithelial layers is not into the muscle. No drainage or blistering. Treatment: The area is cleaned, dressed with bacitracin and a nonstick gauze. We will ask her to keep the area clean with bacitracin or honey to help reduce infection and keep the area moist enough for the new epithelial cells to infiltrate appropriately. 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 We discussed the risk of infection, I have given her a written prescription for 5 days of cephalexin to begin only if she is worried about developing cellulitis. Questions are answered and she is safe for discharge Discharge Plan Departure Patient Disposition: Home Clinical Impression: Burn of lower extremity Instructions: DI for Lewis Activity Restrictions/Additional Instructions: Thank you for coming in today I do not know that will ever be able to figure out if this is truly an electrical burn, heat reaction or simply rubbing. In the end the treatment is the same. Please keep the area clean and change the dressing at least daily. You can use bacitracin or honey to help acute bacterial counts down and allow the epithelial cells to appropriately migraine in for healing. If you notice increasing redness, pain, swelling, drainage or expanding cellulitis, please fill and complete the prescription for cephalexin. If you find that you are getting worse or develop any new symptoms, please feel free to return to the emergency department for further evaluation. Prescriptions: New cephalexin 500 mg capsule 500 mg PO TID Qty: 15 0RF No Action clindamycin HCl 300 mg capsule 300 mg PO QID MDD 1,200 mg Qty: 40 0RF Stand Alone Forms: Patient Portal/API
[2023-08-07] MEDS: BACITRACIN OINT 0.9 GM PCKT 1 APPLIC TOP (19:40)
[2023-08-07 19:52] VITALS: BP 121/73; PULSE 60; RESP 18; O2SAT 99
== END 2023-08-07 19:54 | disposition home or self-care (01) ==
PROVIDERS: Emergency Provider Emergency Medicine
DX: T24.031A Burn of unspecified degree of right lower leg, initial encounter (principal)
CPT/HCPCS: 99282

== ENCOUNTER → 2024-03-30 09:20 | Outpatient (CLI) | payer OTHER, SELFPAY ==
[2018-03-11 18:57] VITALS: BMI 24.1
--- NOTE | 2024-03-30 09:22 | DI.MRI.S_ITS ---
PROCEDURE: MR FOOT RT WO CON INDICATIONS: CONTUSION OF RT FOOT,LINGERING PAIN TECHNIQUE: Multiphasic, multisequence MRI of the forefoot was performed, without intravenous contrast administration. COMPARISON: [facility] [place], CR, XR FOOT 3+ VIEWS RIGHT, 06/11/2023, 13:47. FINDINGS: Image quality: Excellent. Bones and joints: Mild degenerative changes of the 1st interphalangeal joint with mild subchondral cystic changes and marrow edema. There is moderate degenerative change of the 1st tarsometatarsal joint with marked marrow edema and mild subchondral cystic changes in the medial cuneiform. Mild degenerative changes of the 4th tarsometatarsal joint with moderate subchondral marrow edema at the base of the 4th metatarsal. No acute fracture. Soft tissues: The Lisfranc ligament is intact. Small amount of fluid about the master knot of [place]. The flexor tendons are otherwise unremarkable. The extensor tendons are intact. Mild thickening of the visualized distal central cord of the plantar fascia, concerning for plantar fasciitis. Normal muscle signal. No muscle edema or fatty atrophy. Mild second and 3rd intermetatarsal bursitis. IMPRESSION: 1. Mild degenerative change of the 1st interphalangeal joint. 2. Multifocal degenerative changes and midfoot, most pronounced and moderate at the 1st tarsometatarsal joint. 3. Mild 2nd and 3rd intermetatarsal bursitis. 4. Findings suggestive of plantar fasciitis, partially visualized. Dictated by: Maggie Mckay M.D. on 03/31/2024 at 12:43 Approved by: Maggie Mckay M.D. on 03/31/2024 at 12:51
== END ==
LOC: MRI 09:22
PROVIDERS: Referring Provider Podiatrist; Visit Provider Podiatrist
DX: S90.31XA Contusion of right foot, initial encounter (principal); M71.571 Other bursitis, not elsewhere classified, right ankle and foot; X58.XXXA Exposure to other specified factors, initial encounter
CPT/HCPCS: 73718

== ENCOUNTER 2024-10-30 11:59 | Emergency (ER) | payer OTHER, SELFPAY ==
[2018-03-11 18:57] VITALS: BMI 24.1
[2024-10-30] VITALS (8 sets, daily range): BP systolic 117–128; BP diastolic 66–79; PULSE 75–92; RESP 11–20; TEMP 37.2; O2SAT 96–100; BMI 23.3
--- NOTE | 2024-10-30 12:15 | EKG_ITS ---
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
--- NOTE | 2024-10-30 12:15 | DI.RAD.S_ITS ---
PROCEDURE: XR CHEST 1V INDICATIONS: chest pain TECHNIQUE: One view of the chest was acquired. COMPARISON: None. FINDINGS: Surgical changes and devices: None. Lungs and pleura: Lungs are clear. No pleural effusions or pneumothorax. Mediastinum: Mediastinal contours appear normal. Heart size is normal. Bones and chest wall: No suspicious bony lesions. Overlying soft tissues appear unremarkable. IMPRESSION: No acute cardiopulmonary abnormality is seen. Dictated by: Jonathan Quijano M.D. on 10/30/2024 at 12:32 Approved by: Jonathan Quijano M.D. on 10/30/2024 at 12:32
[2024-10-30 12:53] LABS: Add Manual Diff / Slide Review NO; Basophils Absolute Auto 0 /uL (0-100); Basophils Percent Auto 0.4 % (0-2); Eosinophils Absolute Auto 0 /uL (0-450); Eosinophils Percent Auto 0.2 % (2-4); Hematocrit 40.4 % (36-46); Hemoglobin 13.9 g/dL (12.0-16.0); Lymphocytes Absolute Auto 700 /uL (1100-4500); Lymphocytes Percent Auto 6.6 % (25-40); Mean Corpuscular HGB Conc 34.3 % (30-36); Mean Corpuscular Hemoglobin 30.7 PG (26-34); Mean Corpuscular Volume 89.6 fL (80-100); Monocytes Absolute Auto 800 /uL (0-900); Monocytes Percent Auto 7.7 % (3-14); Neutrophils Absolute Auto 8900 /uL (1500-7000); Neutrophils Percent Auto 85.1 % (50-75); Platelet Count 206 X10^3/uL (150-400); Red Blood Cell Count 4.51 X10^6/uL (4.0-5.2); Red Cell Distribution Width 12.7 % (11.6-14.8); White Blood Cell Count 10.4 X10^3/uL (4.5-11.0)
[2024-10-30 12:59] LABS: Influenza A - CEPHEID Flu A NEGATIVE (NEGATIVE); Influenza B - CEPHEID Flu B NEGATIVE (NEGATIVE); Respiratory Syncytial Virus Negative (Negative)
[2024-10-30 13:00] LABS: COVID-19 CEPHEID 4-PLEX PCR Negative (Negative)
[2024-10-30 13:03] LABS: INR 1.1 (0.9-1.3); Prothrombin Time 11.9 SECONDS (9.4-12.5)
[2024-10-30 13:06] LABS: Alanine Aminotransferase 25 IU/L (<35); Albumin 4.6 g/dL (3.5-5.0); Albumin Globulin Ratio 1.4 (1.0-2.8); Alkaline Phosphatase 60 U/L (38-126); Aspartate Aminotransferase 31 IU/L (14-36); BUN Creatinine Ratio 17.6 (6-22); Bilirubin Total 0.8 mg/dL (0.2-1.3); Blood Urea Nitrogen 12 mg/dL (7-17); Calcium 9.5 mg/dL (8.4-10.2); Carbon Dioxide 26 mmol/L (22-32); Chloride 100 mmol/L (98-107); Creatine Kinase 54 U/L (30-135); Estimated Glomerular Filt Rate > 60 mL/min (>60); Globulin 3.4 g/dL (1.7-4.1); Glucose 101 mg/dL (70-100); HEMOLYSIS 35 (0-50); Lipase 68 U/L (23-300); Magnesium 1.7 mg/dL (1.6-2.3); Potassium 4.2 mmol/L (3.4-5.1); Sodium 134 mmol/L (137-145)
[2024-10-30 13:12] LABS: PTT Partial Thromboplastin Tim 21 SECONDS (25.1-36.5)
[2024-10-30 13:18] LABS: NT-proBNP (BNP-Adult 18+) 943 pg/mL (<125); Troponin I < 0.012 ng/mL (0.01-0.034)
--- NOTE | 2024-10-30 13:42 | ED_ITS ---
HPI - URI/Sore Throat General Chief Complaint: Upper Respiratory Symptoms Stated Complaint: chest px, cold symptoms x 5 days Time Seen by Provider: 10/30/24 13:42 Source: patient Mode of arrival: Ambulatory History of Present Illness HPI Narrative: 54-year-old female has 5 days duration of cough, some central chest discomfort not necessarily with cough, some loose stools without black or red color, exposed to someone with mononucleosis. 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 Related Data Previous Rx's Medication Instructions Recorded clindamycin HCl 300 mg capsule 300 mg PO QID #40 caps 03/16/18 cephalexin 500 mg capsule 500 mg PO TID #15 caps 08/07/23 Allergies Allergy/AdvReac Type Severity Reaction Status Date / Time No Known Drug Allergies Allergy Verified 03/09/18 13:02 Patient History Social History household members: significant other, family and children Smoking Status: Never smoker Smoking Status: Never smoker alcohol intake frequency: 0-2 drinks per day Exam Narrative Exam Narrative: GENERAL: Well-developed patient, in mild distress. HEAD: Atraumatic. Normocephalic. EYES: Pupils equal round and reactive. Extraocular motions intact. No scleral icterus. No injection or drainage. ENT: Nose without bleeding, purulent drainage. Throat without erythema, tonsillar hypertrophy or exudate. Airway patent. Laryngitis on examination. NECK: Trachea midline. Non tender CARDIOVASCULAR: Regular rate and rhythm without murmurs, gallops, or rubs. RESPIRATORY: Clear to auscultation. Breath sounds equal bilaterally. No wheezes, rales, or rhonchi. GASTROINTESTINAL: Abdomen soft, non-tender, nondistended. No tenderness, could not palpate any spleen edge. EXTREMITIES: No edema or joint tenderness. BACK: Nontender without deformity or crepitance. No flank tenderness. NEURO: AOx3. Motor functions grossly nonfocal SKIN: No rash or erythema of visible areas Initial Vital Signs Initial Vital Signs: Vital Signs Temperature 98.9 F 10/30/24 12:08 Pulse Rate 89 10/30/24 12:08 Respiratory Rate 18 10/30/24 12:08 Blood Pressure 117/77 10/30/24 12:08 Pulse Oximetry 99 10/30/24 12:08 Oxygen Delivery Method Room Air 10/30/24 12:08 Course Orders Ordered: ED Orders 10/30/24 12:15 XR chest 1V Stat Covid-19 + FLU A/B + RSV - PCR Stat EKG-12 Lead Stat 10/30/24 12:40 Complete Blood Count AUTO DIFF Stat Comprehensive Metabolic Panel Stat Lipase Stat Magnesium Stat NT-proBNP (BNP-Adult 18+) Stat PTT Partial Thromboplastin Eduar Stat Prothrombin Time INR Stat Troponin & CK Cardiac Panel Stat 10/30/24 15:19 Monotest Stat Vital Signs Vital signs: Vital Signs - 8 hr 10/30/24 14:00 10/30/24 14:00 10/30/24 14:30 Pulse Rate 81 Respiratory Rate 18 Blood Pressure 120/73 123/75 Pulse Oximetry 98 Oxygen Delivery Method Room Air 10/30/24 14:30 10/30/24 16:08 Pulse Rate 87 88 Respiratory Rate 20 16 Blood Pressure 128/66 Pulse Oximetry 100 96 Oxygen Delivery Method Room Air MDM - URI/Sore Throat Lab Data Attestation: I reviewed the patient's lab results. Lab results narrative: White blood cell count 53711, hemoglobin 13.9, platelets adequate. Basic metabolic panel unremarkable. Liver functions and lipase normal. BNP 943 mild elevation. Troponin negative. COVID, RSV, flu swab negative. 10/30/24 12:40 10/30/24 12:40 Labs: Lab Results 10/30/24 10/30/24 Range/Units 12:15 12:40 WBC 10.4 (4.5-11.0) X10^3/uL RBC 4.51 (4.0-5.2) X10^6/uL Hgb 13.9 (12.0-16.0) g/dL Hct 40.4 (36-46) % MCV 89.6 (80-100) fL MCH 30.7 (26-34) PG MCHC 34.3 (30-36) % RDW 12.7 (11.6-14.8) % Plt Count 206 (150-400) X10^3/uL Neut % (Auto) 85.1 H (50-75) % Lymph % (Auto) 6.6 L (25-40) % Dickenson % (Auto) 7.7 (3-14) % Eos % (Auto) 0.2 L (2-4) % Baso % (Auto) 0.4 (0-2) % Neut # (Auto) 8900 H (1629-9270) /uL Lymph # (Auto) 700 L (9339-7216) /uL Dickenson # (Auto) 800 (0-900) /uL Eos # (Auto) 0 (0-450) /uL Baso # (Auto) 0 (0-100) /uL PT 11.9 (9.4-12.5) SECONDS INR 1.1 (0.9-1.3) APTT 21 L (25.1-36.5) SECONDS Sodium 134 L (137-145) mmol/L Potassium 4.2 (3.4-5.1) mmol/L Chloride 100 (98-107) mmol/L Carbon Dioxide 26 (22-32) mmol/L BUN 12 (7-17) mg/dL Creatinine 0.68 (0.52-1.04) mg/dL Estimated GFR > 60 (>60) mL/min BUN/Creatinine Ratio 17.6 (6-22) Glucose 101 H (70-100) mg/dL Calcium 9.5 (8.4-10.2) mg/dL Magnesium 1.7 (1.6-2.3) mg/dL Total Bilirubin 0.8 (0.2-1.3) mg/dL AST 31 (14-36) IU/L ALT 25 (<35) IU/L Alkaline Phosphatase 60 (38-126) U/L Total Creatine Kinase 54 (30-135) U/L Troponin I < 0.012 (0.01-0.034) ng/mL NT-Pro-B Natriuret Pep 943 H (<125) pg/mL Total Protein 8.0 (6.3-8.2) g/dL Albumin 4.6 (3.5-5.0) g/dL Globulin 3.4 (1.7-4.1) g/dL Albumin/Globulin Ratio 1.4 (1.0-2.8) Lipase 68 (23-300) U/L SARS-CoV-2 (PCR) Negative (Negative) Monoscreen Negative (Negative) Influenza A (RT-PCR) Flu a negative (NEGATIVE) Influenza B (RT-PCR) Flu b negative (NEGATIVE) RSV (PCR) Negative (Negative) ECG Data Attestation: I personally reviewed and interpreted this ECG as follows: Interpretation: Normal sinus rhythm with rate of 80, no obvious ST segment elevation or depression changes. AR 132, QRS 84, QTC 389. MDM Narrative Medical decision making narrative: 54-year-old female with 5 days duration cough, loose stool, no black or red color to stool, also exposure to mononucleosis, we would like to have mononucleosis screening. 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 Labs requested from triage, we will add Monospot. EKG without obvious ischemic changes, troponin negative. Chest x-ray single view. Impression: ?No acute cardiopulmonary abnormality is seen. ? See radiology report Monospot negative. DC home. Supportive care discussed. Discharge Plan Departure Patient Disposition: Home Clinical Impression: Upper respiratory infection, Laryngitis Activity Restrictions/Additional Instructions: Ms Bravo, Recent 5 days cough, central chest discomfort, also with some loose stools, no black or red stools, possible exposure to mononucleosis. EKG and blood tests not suggestive of heart attack. Chest x-ray unremarkable. Screening labs unremarkable. Monospot test was sent and was negative. Take Tylenol and or Motrin as needed for fever or discomfort. Oral [id number] lozenges for throat pain. Recheck advised with your regular doctor if symptoms not improved in the next few days. Return to this/nearest emergency department for any change worsening symptoms or any concerns prior. Thank you for allowing our team to evaluate you today. Prescriptions: No Action cephalexin 500 mg capsule 500 mg PO TID Qty: 15 0RF clindamycin HCl 300 mg capsule 300 mg PO QID MDD 1,200 mg Qty: 40 0RF Referrals: Brigitte John ARNP [Primary Care Provider] - Stand Alone Forms: Patient Portal/API/Survey
--- NOTE | 2024-10-30 14:05 | PC.NURSE ---
Pt denies feeling nauseated. Refused IV attempt at this time. Plan is to wait for labs to result and determine if she needs it then.
[2024-10-30 15:38] LABS: Monotest Negative (Negative)
== END 2024-10-30 16:14 | disposition home or self-care (01) ==
PROVIDERS: Emergency Provider Emergency Medicine; PCP Registered Nurse
DX: J06.9 Acute upper respiratory infection, unspecified (principal); J04.0 Acute laryngitis; R05.9 Cough, unspecified; R07.9 Chest pain, unspecified
CPT/HCPCS: 0241U; 71045; 80053; 82550; 83690; 83735; 83880; 84484; 85025; 85610; 85730; 86318; 93005; 93010; 99281; 99284